=== PATIENT | female | born 1970 | race Caucasian/White ===

== ENCOUNTER → 2016-03-13 | Outpatient (CLI) | payer OTHER ==
--- NOTE | 2016-03-13 16:13 | DX ---
Bilateral Ankles, Three weightbearing views of each History: Instability Findings: Right: Alignment is anatomic. The talar domes are symmetric and normal. Mineralization is n ormal. There is no arthritis. Mineralization is normal. No evidence for ankle joint effusion. Left: Alignment is anatomic. The talar dome is normal. Mineralization is normal. There is no arthriti s. No ankle joint effusion. Impression: Normal bilateral ankles..
--- NOTE | 2016-03-13 17:23 | DX ---
Bilateral Feet, Three Views Each History: Bilateral feet pain. Findings: Normal mineralization and alignment. Bipartite appearance to the medial left sesamoid. N o significant joint narrowing. Minimal subarticular sclerosis and spurring at the 1st metatarsophala ngeal joint bilaterally. No evidence for a periarticular erosion. No evidence for an enthesophyte a t the plantar insertion of either calcaneus or erosion. Accessory ossification is seen dorsal to the talonavicular articulation on the right. Impression: Minimal early degenerative change at the 1st metatarsophalangeal joint bilaterally. Oth erwise unremarkable.
== END ==
LOC: BMCIMAGING 15:36
PROVIDERS: ATTEND Podiatrist Foot & Ankle Surgery
DX: M19.071 Primary osteoarthritis, right ankle and foot (principal); M19.072 Primary osteoarthritis, left ankle and foot

== ENCOUNTER 2016-03-17 15:32 | Observation (INO) | payer OTHER ==
[2016-03-17] MEDS ORDERED: ADENOSINE 6 MG/2 ML VIAL ONE (15:36)
--- NOTE | 2016-03-17 15:36 | EDPHY ---
H & P HPI/ROS: HPI CHIEF COMPLAINT: Chest Pain HISTORY OF PRESENT ILLNESS: This patient very pleasant 45-year-old female she does have significant past medical history for angina and takes nitroglycerin for this, diabetes, hyperlipidemia and thyroid disease, she presents emergency room by private vehicle for chest pain. Patient tells me that it felt like a gas pain in the center of her chest left-sided and at times radiates down her left shoulder and upper left jaw. At times she describes aching sensation in her chest as well as numbness in her left shoulder. Patient tells me that she did take 2 nitroglycerin prior to arrival however it really did not help with her pain. She tells me does feel like angina and also tells me that he gets worse when she exerts herself. She states this started at 9:30 a.m. this morning it has been intermittent. She went to work and had to leave work because of the pain got more severe. she denies a history of cardiac disease, denies history of stroke, denies a history of stent placement. This patient is followed by Dr. Ellis Ramirez with Cardiology. Past Medical History: Angina, diabetes, hyperlipidemia, thyroid disease Past Surgical History: the left oophorectomy, right oophorectomy, lysis of adhesions, heart catheterization approximately 1 year ago Social History: Denies use of drugs, alcohol, tobacco products, lives locally. Family History: Noncontributory ROS REVIEW OF SYSTEMS: A comprehensive 10 point review of systems is otherwise negative aside from elements mentioned in the history of present illness. Exam Constitutional triage nursing summary reviewed, vital signs reviewed, awake/ alert. Eyes normal conjunctivae and sclera, EOMI, PERRLA. HENT normal inspection, atraumatic, moist mucus membranes, no epistaxis, neck supple/ no meningismus, no raccoon eyes. Respiratory clear to auscultation bilaterally, normal breath sounds, no respiratory distress, no wheezing. Cardiovascular rate normal, regular rhythm, no murmur, no edema, distal pulses normal. Gastrointestinal soft, non-tender, no rebound, no guarding, normal bowel sounds, no distension, no pulsatile mass. Genitourinary no CVA tenderness. Musculoskeletal no midline vertebral tenderness, full range of motion, no calf swelling, no tenderness of extremities, no meningismus, good pulses, neurovascularly intact. Skin pink, warm, & dry, no rash, skin atraumatic. Neurologic awake, alert and oriented x 3, AAOx3, moves all 4 extremities equally, motor intact, sensory intact, CN II-XII intact, normal cerebellar, normal vision, normal speech. Psychiatric normal mood/affect. Heme/Lymph/Immune no lymphadenopathy. Differential diagnosis includes but is not limited to: ACS, atypical chest pain , pneumothorax, pneumonia, pulmonary embolism, aortic dissection, congestive heart failure, tumor, musculoskeletal pain, esophageal pain, GERD, peptic ulcer disease, pancreatitis Medical Decision Making: This patient will have an IV established obtain blood work, EKG, chest x-ray, patient will have nitroglycerin, full-dose aspirin, 1 mg IV Dilaudid IV fluids see if this improves her chest discomfort.Patient will need a chest x-ray. Re-evaluation: EKG interpretation by me on record in [employer] system. Impression time of EKG 153, this is sinus tachycardia 106. When compared to old EKG on the 2015 this appears to be a very similar EKG morphology. I do not appreciate acute ischemic change on this EKG specifically no ST elevation, ST depression. There is nonspecific T-wave abnormality in V1, V2 similar to previous EKG. 1641; re-evaluation is patient tells me her chest pain is almost gone currently 02/25. This was after nitroglycerin and Dilaudid. Due to the patient' s chest pain symptoms she does have a normal EKG, negative troponin but does have cardiac risk factors I will admit her to the [facility] for observation. Cardiac evaluation rule out. ED x-ray chest one view: negative for acute cardiopulmonary disease. Image interpreted by myself. 1645: at this time this patient is resting comfortably chest pain-free. She is agreeable for admission for cardiac evaluation and rule out. It is noted she had a negative D-dimer, negative troponin, nonischemic EKG. Patient be admitted to the E[facility]. Spoke with Dr. Sewell who agrees to admit this patient. Source: Patient - Medical/Surgical History Hx Asthma: Yes Hx Chronic Respiratory Disease: No Hx Diabetes: Yes Hx Cardiac Disease: No Hx Renal Disease: No Hx Cirrhosis: No Hx Alcoholism: No Hx HIV/AIDS: No Hx Splenectomy or Spleen Trauma: No Other PMH: hysterectomy,C- section, laproscopy for ovarian cysts and adhesions; hypothyroid, fibromyalgia, pre-diabetes, asthma, IBS, adhesions, ANGINA - Social History Smoking Status: Former smoker Constitutional: Initial Vital Signs Temperature (C) 36.4 C 03/17/16 15:37 Heart Rate 120 H 03/17/16 15:37 Respiratory Rate 28 H 03/17/16 15:37 Blood Pressure 109/84 H 03/17/16 15:37 O2 Sat (%) 95 03/17/16 15:37 O2 Delivery Mode Nasal Cannula O2 (L/minute) 2 Allergies/Adverse Reactions: capsaicin Allergy (Verified 03/17/16 15:33) ciprofloxacin [From Cipro] Allergy (Verified 03/17/16 15:33) ciprofloxacin HCl [From Cipro] Allergy (Verified 03/17/16 15:33) morphine Allergy (Verified 03/17/16 15:33) Sulfa (Sulfonamide Antibiotics) Allergy (Verified 03/17/16 15:33) tramadol Allergy (Verified 03/17/16 15:33) venom-wasp [Wasp Venom] Allergy (Verified 03/17/16 15:33) Home Medications: Medication Instructions Recorded Amitriptyline HCl 07/23/15 Atorvastatin Calcium 07/23/15 Gabapentin 07/23/15 Levothyroxine 07/23/15 Nitroglycerin 07/23/15 Protonix 07/23/15 Topiramate 07/23/15 Xyzal 07/23/15 [place] 03/17/16 Medical Decision Making - Data Points Laboratory Results: Laboratory Results 03/17/16 15:41 03/17/16 15:41 03/17/16 15:41 WBC 5.36 10^3/uL (3.80-9.50) RBC 4.67 10^6/uL (4.18-5.33) Hgb 14.8 g/dL (12.6-16.3) Hct 43.0 % (38.0-47.0) MCV 92.1 fL (81.5-99.8) MCH 31.7 pg (27.9-34.1) MCHC 34.4 g/dL (32.4-36.7) RDW 12.9 % (11.5-15.2) Plt Count 261 10^3/uL (150-400) MPV 9.8 fL (8.7-11.7) Neut % (Auto) 46.7 % (39.3-74.2) Lymph % (Auto) 43.1 % (15.0-45.0) [place] % (Auto) 7.1 % (4.5-13.0) Eos % (Auto) 2.2 % (0.6-7.6) Baso % (Auto) 0.9 % (0.3-1.7) Nucleat RBC Rel Count 0.0 % (0.0-0.2) Absolute Neuts (auto) 2.50 10^3/uL (1.70-6.50) Absolute Lymphs (auto) 2.31 10^3/uL (1.00-3.00) Absolute Monos (auto) 0.38 10^3/uL (0.30-0.80) Absolute Eos (auto) 0.12 10^3/uL (0.03-0.40) Absolute Basos (auto) 0.05 10^3/uL (0.02-0.10) Absolute Nucleated RBC 0.00 10^3/uL (0-0.01) Immature Gran % 0.0 % (0.0-1.1) Immature Gran # 0.00 10^3/uL (0.00-0.10) PT 12.8 SEC (12.0-15.0) INR 0.97 (0.83-1.16) APTT 28.1 SEC (23.0-38.0) D-Dimer 0.35 ug/mLFEU (0.00-0.50) Sodium 140 mEq/L (134-144) Potassium 4.1 mEq/L (3.5-5.2) Chloride 106 mEq/L (97-110) Carbon Dioxide 24 mEq/l (22-31) Anion Gap 10 mEq/L (8-16) BUN 15 mg/dL (7-23) Creatinine 0.9 mg/dL (0.6-1.0) Estimated GFR > 60 Glucose 115 H mg/dL (70-100) Calcium 9.1 mg/dL (8.5-10.4) Magnesium 1.6 mg/dL (1.6-2.3) Total Bilirubin 0.5 mg/dL (0.1-1.4) Conjugated Bilirubin 0.2 mg/dL (0.0-0.5) Unconjugated Bilirubin 0.3 mg/dL (0.0-1.1) AST 27 IU/L (14-46) ALT 55 H IU/L (9-52) Alkaline Phosphatase 121 IU/L (38-126) Creatine Kinase 60 IU/L (0-156) CK-MB (CK-2) Fraction 0.65 ng/mL (0-3.19) Troponin I < 0.012 ng/mL (0-0.034) NT-Pro-B Natriuret Pep < 11 pg/mL (0-125) Total Protein 7.3 g/dL (6.3-8.2) Albumin 3.9 g/dL (3.5-5.0) Lipase 92.0 IU/L (23-300) Medications Given: Discontinued Medications Aspirin Buffered (Aspirin Ec) 325 mg PO EDNOW ONE Stop: 03/17/16 15:44 Last Admin: 03/17/16 15:53 Dose: 325 mg Hydromorphone HCl (Dilaudid) 1 mg IVP EDNOW ONE Stop: 03/17/16 15:46 Last Admin: 03/17/16 15:53 Dose: 1 mg Sodium Chloride (Ns) 1,000 mls @ 0 mls/hr IV ONCE ONE PRN Reason: As Directed Stop: 03/17/16 15:39 Last Admin: 03/17/16 15:53 Dose: 1,000 mls Nitroglycerin (Nitrostat) 0.4 mg SL EDNOW ONE Stop: 03/17/16 15:46 Last Admin: 03/17/16 15:52 Dose: 0.4 mg Departure - Departure Disposition: [facility] Inpatient Acute Clinical Impression: Chest pain Qualifiers: Chest pain type: unspecified Qualifier Code: (R07.9) Chest pain, unspecified Condition: Fair Referrals: Ramona Magallanes PAC [Primary Care Provider] - As per Instructions
[2016-03-17] MEDS ORDERED: NS 1,000 ML IV ONE ×2 (15:38→16:41)
--- NOTE | 2016-03-17 15:41 | CPEKG ---
Heart Rate: 106 RR Interval: 566 P-R Interval: 172 QRSD Interval: 78 QT Interval: 348 QTC Interval: 463 P [place]: 39 QRS [place]: 7 T Wave [place]: -8 EKG Severity - BORDERLINE ECG - EKG Impression: SINUS TACHYCARDIA EKG Impression: BORDERLINE R WAVE PROGRESSION, ANTERIOR LEADS EKG Impression: BORDERLINE T ABNORMALITIES, INFERIOR LEADS Electronically Signed By: Alber Benites 17-Mar-2016 23:30:08
[2016-03-17] MEDS ORDERED: ASPIRIN EC 325 MG TAB PO ONE (15:43)
[2016-03-17] MEDS ORDERED: HYDROmorphONE/DILAUDID 1 MG/ML SYR IVP ONE ×2 (15:45→16:40)
[2016-03-17] MEDS ORDERED: NITROGLYCERIN 0.4 MG BTL SL ONE (15:45)
[2016-03-17] MEDS ORDERED: ASPIRIN 81 MG CHEWABLE TAB ONE (15:48)
[2016-03-17 15:59] LABS: ADD DIFF? NO; ADD MORPH? NO; ADD SCAN? NO; ATYPICAL LYMPHOCYTE FLAG 10 (0-99); FRAGMENT RBC FLAG 0 (0-99); HEMOGLOBIN 14.8 g/dL (12.6-16.3); LEFT SHIFT FLG 0 (0-99); LIPEMIA HEMOLYSIS FLAG 90 (0-99); MEAN CELL HEMOGLOBIN 31.7 pg (27.9-34.1); MEAN CELL HEMOGLOBIN CONCENTR. 34.4 g/dL (32.4-36.7); MEAN CELL VOLUME 92.1 fL (81.5-99.8); MEAN PLATELET VOLUME 9.8 fL (8.7-11.7); PLATELET CLUMPS FLAG 10 (0-99); PLATELET COUNT 261 10^3/uL (150-400); RED BLOOD CELL COUNT 4.67 10^6/uL (4.18-5.33); RED CELL DISTRIBUTION WIDTH 12.9 % (11.5-15.2)
[2016-03-17 16:03] LABS: INR 0.97 (0.83-1.16); PROTIME(PATIENT) 12.8 SEC (12.0-15.0)
[2016-03-17 16:04] LABS: ALANINE AMINOTRANSFERASE 55 IU/L (9-52); ALBUMIN 3.9 g/dL (3.5-5.0); ALKALINE PHOSPHATASE 121 IU/L (38-126); ANION GAP 10 mEq/L (8-16); APTT 28.1 SEC (23.0-38.0); ASPARTATE AMINOTRANSFERASE 27 IU/L (14-46); BILIRUBIN,TOTAL 0.5 mg/dL (0.1-1.4); BILIRUBIN-CONJUGATED 0.2 mg/dL (0.0-0.5); BILIRUBIN-UNCONJUGATED 0.3 mg/dL (0.0-1.1); CALCIUM 9.1 mg/dL (8.5-10.4); CARBON DIOXIDE 24 mEq/l (22-31); CHLORIDE 106 mEq/L (97-110); CREATININE 0.9 mg/dL (0.6-1.0); GLOMERULAR FILTRATION RATE > 60; GLUCOSE 115 mg/dL (70-100); MAGNESIUM 1.6 mg/dL (1.6-2.3); POTASSIUM 4.1 mEq/L (3.5-5.2); SODIUM 140 mEq/L (134-144); TOTAL PROTEIN 7.3 g/dL (6.3-8.2)
--- NOTE | 2016-03-17 16:11 | DX ---
Portable Chest, Single View 15:51 p.m. Hours Indication: Chest pain Comparison: 2 view chest dated December 05, 2014 Findings: Lungs are hypoventilated with diffuse peribronchial thickening and minimal bronchovascular crowding. No pneumothorax, airspace consolidation, edema or effusion. Heart size within normal limits for degree of inspiration. Mild gaseous distention of the stomach. Impression: Hypoventilation. Otherwise nothing acute.
[2016-03-17 16:16] LABS: CREATINE KINASE-MB FRACTION 0.65 ng/mL (0-3.19); TROPONIN I < 0.012 ng/mL (0-0.034)
[2016-03-17] MEDS ORDERED: ACETAMINOPHEN 325 MG TAB PO PRN (17:09)
[2016-03-17] MEDS ORDERED: HYDROmorphONE/DILAUDID 1 MG/ML SYR IVP PRN (17:38)
--- NOTE | 2016-03-17 18:14 | GHP ---
[f rep st] HISTORY AND PHYSICAL DATE OF ADMISSION: 03/17/2016 DATE OF EVALUATION: 03/17/2016 CHIEF COMPLAINT: Chest pain. HISTORY OF PRESENT ILLNESS: This is a 45-year-old female with a history of possible Prinzmetal angin wicho, who presents with chest pain. This started about 9 or 10 this morning. Described as left-sided, squeezing, radiating to her left arm, left axilla, and left neck. She took 2 nitroglycerin, which di d not relieve her pain. It is not clear if it was exertional. History is notable for having had a cardiac catheterization by Dr. Ramirez in December of 2014. At th at point, he found no flow-limiting coronary artery disease. He suggested the possible diagnosis of vasospastic angina and started her on nitroglycerin as needed. She tells me that every few months elena alvarez has an episode like this. She presented to the ER today because it was worse, lasted longer, assoc iated with shortness of breath and dizziness, though it is like her other episodes. These are typica lly relieved with nitroglycerin, however. PAST MEDICAL/SURGICAL HISTORY: 1. Diabetes mellitus. 2. Hyperlipidemia. 3. Hypothyroid. 4. Migraines. 5. Fibromyalgia. MEDICATIONS: Please see medication reconciliation. ALLERGIES: Capsaicin, ciprofloxacin, morphine, sulfa, tramadol, and venom, wasp. FAMILY HISTORY: Multiple members with coronary artery disease are in her family, including her first -degree relative, her mother. SOCIAL HISTORY: She occasionally drinks alcohol. She does not smoke. REVIEW OF SYSTEMS: Ten-point review of systems is conducted and is negative, except per HPI. PHYSICAL EXAM: VITAL SIGNS: Blood pressure 127/82, heart rate 92, respiration rate 20, saturating 9 7% on room air, temperature 36.4. GENERAL: The patient is a pleasant female who appears mildly dist ressed and somewhat anxious. HEENT: Normocephalic, atraumatic. CARDIOVASCULAR: Regular rate and r hythm. No murmurs, rubs, or gallops. No elevated JVD. No lower extremity edema. PULMONARY: Lungs clear to auscultation bilaterally. She is in no respiratory distress. ABDOMEN: Soft, nontender, n ondistended. SKIN: No rash. : No [place]. NEUROLOGIC: Exam shows her to be alert and oriented x3 . She is moving all extremities. PSYCHIATRIC: Exam shows normal mood and affect. LABS: CBC is normal. D-dimer is negative. Basic metabolic panel is normal. LFTs show a mildly krishna vated ALT, which has been the case in the past. DATA: 1. I discussed this with Dr. Benites. Will plan to admit to the E[facility]. 2. I personally viewed and interpreted her chest x-ray. This shows nothing acute. 3. I personally viewed and interpreted her EKG. This shows sinus rhythm, T-wave inversion in lead I II, slow R-wave progression. IMPRESSION/PLAN: A 45-year-old female presents with chest pain. 1. Chest pain: Differential includes acute coronary syndrome, which I think is less likely, possibl e vasospastic angina, possibly due to fibromyalgia or other pain syndrome. She had a normal catheter ization in December of 2014, which is reassuring. Will plan to monitor on telemetry overnight, trend her troponins. I have started her on diltiazem in case this is a vasospastic form of angina. Also, gave her other pain medicines for pain control. Cardiology will be consulted in the morning given h er history of a catheterization and history with Dr. Ramirez. Will hold further diagnostics until fur ther recommendations. 2. History of diabetes mellitus type 2: She takes oral medicines. Will continue Januvia when medic ations are reconciled. 3. Hyperlipidemia: Continue atorvastatin. 4. Hypothyroid: Continue Synthroid. 5. Migraines: Continue Topamax, amitriptyline, gabapentin. 6. Fibromyalgia: Continue these medicines, does not seem that she is on narcotics currently. /[id number]/MODL
[2016-03-17] MEDS ORDERED: ALBUTEROL 60 PUFFS/8 GM MDI IH PRN (18:45)
[2016-03-17] MEDS ORDERED: ONDANSETRON 4 MG/2 ML VIAL IVP PRN (18:46)
[2016-03-17] MEDS: DILTIAZEM 30 MG TAB PO SCH (18:47)
[2016-03-17] MEDS: oxyCODONE IR 5 MG TAB PO PRN ×2 (18:48→22:48)
[2016-03-17 19:55] VITALS: O2SAT 93
[2016-03-17] MEDS: ONDANSETRON DISINTEGRATING 4 MG TAB PO PRN (19:58)
[2016-03-17] MEDS ORDERED: TOPIRAMATE 25 MG TAB PO SCH (21:00)
[2016-03-17] MEDS ORDERED: FAMOTIDINE 20 MG TAB PO SCH (21:00)
[2016-03-17] MEDS ORDERED: ATORVASTATIN CALCIUM 40 MG TAB PO SCH (21:00)
[2016-03-17] MEDS ORDERED: AMITRIPTYLINE HCL 25 MG TAB PO SCH (22:00)
[2016-03-17] MEDS: GABAPENTIN 400 MG CAP PO SCH (22:47)
[2016-03-17] MEDS ORDERED: NITROGLYCERIN 0.4 MG BTL SL PRN (23:10)
[2016-03-17] MEDS: NITROGLYCERIN 0.4 MG BTL SL SCH ×3 (23:56→23:59)
[2016-03-18] MEDS: NITROGLYCERIN 0.4 MG BTL SL SCH ×15 (00:01→01:37)
[2016-03-18] MEDS: DILTIAZEM 30 MG TAB PO SCH ×3 (01:15→13:10)
[2016-03-18] MEDS: ONDANSETRON DISINTEGRATING 4 MG TAB PO PRN ×2 (05:31→13:59)
[2016-03-18] MEDS: oxyCODONE IR 5 MG TAB PO PRN ×3 (05:31→14:00)
[2016-03-18] MEDS ORDERED: LEVOTHYROXINE 137 MCG TAB PO SCH (06:00)
[2016-03-18] MEDS: GABAPENTIN 400 MG CAP PO SCH ×2 (08:19→13:09)
[2016-03-18 08:23] VITALS: RESP 20; TEMP 97.8
[2016-03-18] MEDS ORDERED: PANTOPRAZOLE SODIUM 40 MG TAB PO SCH (10:00)
[2016-03-18 13:10] VITALS: BP 114/79; PULSE 96
[2016-03-18] MEDS ORDERED: GABAPENTIN 100 MG CAP ONE (13:30)
[2016-03-18] MEDS ORDERED: GABAPENTIN 300 MG CAP ONE (13:30)
--- NOTE | 2016-03-18 13:34 | PDCARPN ---
Cardiology Progress Note Assessment/Plan: The patient is a 45-year-old female known to my partner, Dr. Ramirez. She has a history of chest pain episodes that have been ascribed to potential coronary vasospasm. A cardiac catheterization performed 2 years ago demonstrated angiographically normal coronary arteries. She was placed in observation overnight because of a more protracted and severe episode of chest discomfort yesterday. She was just sitting at home when he began to experience substernal and left chest burning discomfort with radiation to the inner aspect of the left arm. This was associated with some shortness of breath and lightheadedness. She tried her sublingual nitroglycerin which is usually effective in relieving such episodes. This time it did not work. In talking with her, it may be that her nitroglycerin tablets were stale. There were no acute ischemic changes on ECG. Her serial troponin levels all came back normal. At this point she is stable for discharge. I provided her with a new prescription for nitroglycerin tablets. The hospitalist service also prescribed daily calcium channel bob for preventative therapy. I have left a message with the office staff at [facility] to contact the patient to arrange a followup appointment in the future with Dr. Ramirez. 03/18/16 13:28 Subjective: No symptoms today. Reviewed/Discussed With: hospitalist Objective: Vital Signs (8 Hrs) Temp Pulse Resp BP Pulse Ox 03/18/16 13:10 96 114/79 03/18/16 08:00 36.6 C 86 20 108/75 93 03/18/16 05:40 80 111/78 03/18/16 05:39 80 111/78 Intake/Output (24 Hrs) 03/17/16 03/18/16 03/19/16 05:59 05:59 05:59 Intake Total 1999 Balance 1999 Intake: IV Infused (ml) 1999 Other: Weight 86.9 kg Result Diagrams: 03/17/16 15:41 03/17/16 15:41 Cardiac Labs: Cardiac Lab Results (72 Hrs) 03/18/16 03/17/16 05:10 22:50 Troponin I < 0.012 < 0.012 - Physical Exam Constitutional: no apparent distress Eyes: anicteric sclera Ears, Nose, Mouth, Throat: moist mucous membranes Cardiovascular: regular rate and rhythm, no murmurs, no rubs, no gallops Respiratory: clear to auscultate bilat Gastrointestinal: normoactive bowel sounds, no tenderness, no masses Skin: no rashes, no edema Neurologic: AAOx3 Psychiatric: not anxious ICD10 Worksheet Patient Problems: Problems Problem Status Diagnosed Abdominal pain Acute Chest pain Acute
[2016-03-18] MEDS ORDERED: GABAPENTIN 400 MG CAP PO ONE (14:00)
--- NOTE | 2016-03-18 15:43 | GDS ---
[f rep st] DISCHARGE SUMMARY DISCHARGE DIAGNOSES: 1. Chest pain, due to possible coronary artery vasospasms versus musculoskeletal chest wall pain in the setting of fibromyalgia. 2. History of type 2 diabetes mellitus. 3. Hyperlipidemia. 4. Hypothyroidism. 5. Migraines. 6. Fibromyalgia. HOSPITAL COURSE AND STAY BY PROBLEM: Chest pain: The patient was placed in observation, where seria l troponins were done which were unremarkable. Throughout her hospital stay, she has continued to farrell ve left-sided sharp, squeezing chest pain despite her negative workup. On day of discharge, patient does have some tenderness to palpation over her ribs 5 and 6 at the midaxillary line. Prior to discharge, the patient was seen by Dr. Raul Reyna from [facility], who agr eed with discharging the patient on a trial of daily diltiazem, as well as a new prescription for nit roglycerin. If she continues to have chest discomfort on these medications, I think it would be reas onable to further evaluate for different medications for fibromyalgia, such as Cymbalta, to see if th is would help her symptomatology. PHYSICAL EXAM ON DAY OF DISCHARGE: VITAL SIGNS: Blood pressure 114/79, pulse of 86, respiratory rat e 20, O2 sat 93% on room air, temperature afebrile. GENERAL: No acute distress. HEART: S1, S2. L UNGS: Clear. ABDOMEN: Soft. EXTREMITIES: No edema. CHEST: There is tenderness to palpation at the midaxillary line of ribs 6 and 7. DIAGNOSTICS DONE THIS HOSPITAL STAY: D-dimer was done and that was within normal limits. DISCHARGE MEDICATIONS: Please refer to discharge medication reconciliation in [facility] for details. DISCHARGE INSTRUCTIONS: The patient will be discharged from the hospital, where she should follow up with both her primary care provider, as well as Dr. Ramirez at [facility] for routine hospital fol lowup. /[id number]/MODL
== END 2016-03-18 15:08 | disposition home or self-care (01) ==
LOC: F1N 17:07
PROVIDERS: ADMIT Student in an Organized Health Care Education/Training Program; ATTEND Student in an Organized Health Care Education/Training Program
DX: R07.9 Chest pain, unspecified (principal); M79.7 Fibromyalgia; E11.9 Type 2 diabetes mellitus without complications; I20.9 Angina pectoris, unspecified; E78.5 Hyperlipidemia, unspecified; E03.9 Hypothyroidism, unspecified; G43.909 Migraine, unspecified, not intractable, without status migrainosus; Z79.84 Long term (current) use of oral hypoglycemic drugs
CPT/HCPCS: 71010; 93005; 96361; 96374; 96376; 99285; G0378; J0153; J1170

== ENCOUNTER → 2016-06-18 | Outpatient (CLI) | payer OTHER | LOC: FIMAGING 14:07 | PROVIDERS: ATTEND Physician Assistant | DX: M79.661 Pain in right lower leg (principal) ==

== ENCOUNTER 2016-06-20 16:13 | Emergency (ER) | payer OTHER ==
[2016-06-20 16:20] VITALS: RESP 15
--- NOTE | 2016-06-20 16:50 | EDPHY ---
H & P Time Seen by Provider: 06/20/16 16:31 HPI/ROS: Chief complaint. Fall HPI. 46-year-old female was walking this afternoon on a sidewalk stepped on a rock rolled her ankle. She fell injuring her left ankle, 6 sustained abrasion to the right knee, and fell onto her right arm. She can planes of pain from right shoulder to right wrist. She has previously sprained her left ankle about 1 year ago. Did not strike her head or lose consciousness. No neck pain or back pain. No injury to chest or abdomen. ROS Constitutional. no fever/chills, no weakness Eyes. no problems with vision ENT. no sore throat, no nasal drainage Cardiovascular. no chest pain Respiratory. no shortness of breath, no cough Abdominal. no abdominal pain, no nausea/vomiting, no diarrhea . no problems urinating MS. Right arm pain, left ankle pain Skin. Abrasion right knee Lymph. no swollen glands Neuro. Hard to walk now because of discomfort Past Medical/Surgical History: Past medical history hysterectomy, , ovarian cysts, hypothyroid, fibromyalgia, diabetes, asthma, IBS, adhesions, and denied, dyslipidemia, migraines, Gerd Social History: , nonsmoker, no alcohol Smoking Status: Former smoker Physical Exam: General Appearance: Alert well-developed female moderate distress vital signs are stable Eyes: Pupils equal and round no pallor or injection. ENT, Mouth: Mucous membranes are moist. Respiratory: There are no retractions, lungs are clear to auscultation. Cardiovascular: Regular rate and rhythm. Gastrointestinal: Abdomen is soft and nontender, no masses, bowel sounds normal. Neurological: Awake and alert, sensory and motor exams grossly normal. Skin: Warm and dry, no rashes. Musculoskeletal: Neck is supple nontender. Extremities diffuse pain to the right upper extremity. Abrasion behind the right elbow. No obvious deformity. Tenderness around the elbow as well as the right wrist. Left ankle pain on lateral aspect without obvious swelling or deformity. Abrasion just below the right knee Psychiatric: Patient is oriented X 3, there is no agitation. Constitutional: Initial Vital Signs Temperature (C) 36.7 C 06/20/16 16:18 Heart Rate 98 06/20/16 16:18 Respiratory Rate 15 06/20/16 16:18 Blood Pressure 154/102 H 06/20/16 16:18 O2 Sat (%) 96 06/20/16 16:18 O2 Delivery Mode Room Air Allergies/Adverse Reactions: capsaicin Allergy (Verified 06/20/16 16:20) ciprofloxacin [From Cipro] Allergy (Verified 06/20/16 16:20) ciprofloxacin HCl [From Cipro] Allergy (Verified 06/20/16 16:20) morphine Allergy (Verified 06/20/16 16:20) Sulfa (Sulfonamide Antibiotics) Allergy (Verified 06/20/16 16:20) tramadol Allergy (Verified 06/20/16 16:20) venom-wasp [Wasp Venom] Allergy (Verified 06/20/16 16:20) Home Medications: Medication Instructions Recorded Amitriptyline HCl 75 mg PO HS 07/23/15 Atorvastatin Calcium [Lipitor 40 40 mg PO HS 07/23/15 mg (*)] Gabapentin [Neurontin 400 MG (*)] 400 mg PO TID@08,13,21 07/23/15 Levothyroxine [Synthroid 137 mcg 137 mcg PO DAILY06 07/23/15 (*)] Nitroglycerin [Nitrostat 0.4 mg 0.4 mg SL Q5M 07/23/15 (*)] Pantoprazole Sodium [Protonix 40mg 40 mg PO DAILY@10 07/23/15 (*)] Topiramate [Topamax 25MG (*)] 25 mg PO HS 07/23/15 Albuterol Hfa Anes Only [Proair 1 - 2 puffs IH PRN PRN 03/17/16 Hfa Icu (*)] Ranitidine HCl [Zantac] 300 mg PO HS 03/17/16 sitaGLIPtin PHOSPHATE [Januvia 100 100 mg PO DAILY 03/17/16 MG (*)] CYCLOBENZAPRINE HCL [Flexeril] 5 mg PO TIDPRN PRN #10 tab 03/18/16 Diltiazem [Cardizem Ir Q6hr] 30 mg PO Q6HRS #120 tab 03/18/16 oxyCODONE IR [Oxycodone Ir (*)] 5 - 10 mg PO Q4 PRN #10 tab 03/18/16 Hydrocodone/APAP 5/325 [[place] 1 each PO Q4-6PRN PRN #8 tab 06/20/16 5/325 (*)] Medical Decision Making - Diagnostics Imaging Results: Imaging Impressions Ankle X-Ray 06/20/16 16:55 Impression: There is no acute osseous abnormality. RIGHT ELBOW (3 Views, at 5:22 PM): Bone mineralization is preserved. There is no fracture or dislocation. There is no elbow joint effusion. There may be some mild proximal dorsal forearm soft tissue swelling. Impression: There is no acute osseous abnormality. RIGHT FOREARM (AP and Lateral Views, at 5:20 PM): There is no fracture, dislocation, periostitis, or radiopaque foreign body. Impression: There is no acute osseous abnormality identified. LEFT ANKLE (3 Views, at 5:17 PM): This is compared to a previous study dated . There is some mild soft tissue swelling seen laterally. There is no acute fracture or dislocation. The mortise is maintained. The talar dome is well -contoured. There is no ankle joint effusion. The subtalar joint is normal. The base of the fifth metatarsal is unremarkable. Impression: There is no acute osseous abnormality. Elbow X-Ray 06/20/16 16:55 Impression: There is no acute osseous abnormality. RIGHT ELBOW (3 Views, at 5:22 PM): Bone mineralization is preserved. There is no fracture or dislocation. There is no elbow joint effusion. There may be some mild proximal dorsal forearm soft tissue swelling. Impression: There is no acute osseous abnormality. RIGHT FOREARM (AP and Lateral Views, at 5:20 PM): There is no fracture, dislocation, periostitis, or radiopaque foreign body. Impression: There is no acute osseous abnormality identified. LEFT ANKLE (3 Views, at 5:17 PM): This is compared to a previous study dated . There is some mild soft tissue swelling seen laterally. There is no acute fracture or dislocation. The mortise is maintained. The talar dome is well -contoured. There is no ankle joint effusion. The subtalar joint is normal. The base of the fifth metatarsal is unremarkable. Impression: There is no acute osseous abnormality. Forearm X-Ray 06/20/16 16:55 Impression: There is no acute osseous abnormality. RIGHT ELBOW (3 Views, at 5:22 PM): Bone mineralization is preserved. There is no fracture or dislocation. There is no elbow joint effusion. There may be some mild proximal dorsal forearm soft tissue swelling. Impression: There is no acute osseous abnormality. RIGHT FOREARM (AP and Lateral Views, at 5:20 PM): There is no fracture, dislocation, periostitis, or radiopaque foreign body. Impression: There is no acute osseous abnormality identified. LEFT ANKLE (3 Views, at 5:17 PM): This is compared to a previous study dated . There is some mild soft tissue swelling seen laterally. There is no acute fracture or dislocation. The mortise is maintained. The talar dome is well -contoured. There is no ankle joint effusion. The subtalar joint is normal. The base of the fifth metatarsal is unremarkable. Impression: There is no acute osseous abnormality. Humerus X-Ray 06/20/16 16:55 Impression: There is no acute osseous abnormality. RIGHT ELBOW (3 Views, at 5:22 PM): Bone mineralization is preserved. There is no fracture or dislocation. There is no elbow joint effusion. There may be some mild proximal dorsal forearm soft tissue swelling. Impression: There is no acute osseous abnormality. RIGHT FOREARM (AP and Lateral Views, at 5:20 PM): There is no fracture, dislocation, periostitis, or radiopaque foreign body. Impression: There is no acute osseous abnormality identified. LEFT ANKLE (3 Views, at 5:17 PM): This is compared to a previous study dated . There is some mild soft tissue swelling seen laterally. There is no acute fracture or dislocation. The mortise is maintained. The talar dome is well -contoured. There is no ankle joint effusion. The subtalar joint is normal. The base of the fifth metatarsal is unremarkable. Impression: There is no acute osseous abnormality. X-ray right humerus interpreted by me is normal. X-ray right elbow interpreted by me as normal. X-ray right forearm interpreted by me as normal. X-ray left ankle interpreted by me as normal Procedures: Patient has allergies to morphine, tramadol and untoward reactions to oral medication. IV normal saline. Dilaudid and Zofran and Toradol IV ED Course/Re-evaluation: Re-evaluation 5:45 p.m. patient is stable. She and I discussed imaging study results, treatment plan, criteria for return, importance of follow-up and further evaluation. She expresses understanding and agreement. Sling is placed to the right arm. Patient has an orthotic boot at home that she will wear and declines 1 of ours. Differential Diagnosis: I considered fracture, dislocation, sprain - Data Points Medications Given: Discontinued Medications Hydromorphone HCl (Dilaudid) 0.5 mg IVP EDNOW ONE Stop: 06/20/16 16:55 Last Admin: 06/20/16 17:11 Dose: 0.5 mg Ketorolac Tromethamine (Toradol) 30 mg IVP EDNOW ONE Stop: 06/20/16 16:55 Last Admin: 06/20/16 17:12 Dose: 30 mg Ondansetron HCl (Zofran) 4 mg IVP EDNOW ONE Stop: 06/20/16 16:55 Last Admin: 06/20/16 17:12 Dose: 4 mg Departure - Departure Disposition: Home, Routine, Self-Care Clinical Impression: Contusion of right arm Qualifiers: Encounter type: initial encounter Qualified Code(s): S40.021A - Contusion of right upper arm, initial encounter Left ankle sprain Qualifiers: Encounter type: initial encounter Involved ligament of ankle: unspecified ligament Qualified Code(s): S93.402A - Sprain of unspecified ligament of left ankle, initial encounter Condition: Good Instructions: Ankle Sprain (ED) Additional Instructions: Ice to arm ankle next 24-48 hours. Ibuprofen 600 mg every 6 hours for discomfort. Sling and boot until comfortable without. Plan to wear the boot for 7-10 days. Follow up with Orthopedics for continuing arm or ankle pain Referrals: Thomas Ricketts MD [Medical Doctor] - 5-7 days, if not improved Prescriptions: Hydrocodone/APAP 5/325 [Petaluma 5/325 (*)] 1 each PO Q4-6PRN PRN #8 tab PRN Reason: Pain, Moderate
[2016-06-20] MEDS ORDERED: ONDANSETRON 4 MG/2 ML VIAL IVP ONE (16:54)
[2016-06-20] MEDS ORDERED: NS 1,000 ML IV ONE (16:54)
[2016-06-20] MEDS ORDERED: KETOROLAC 30 MG/1 ML SDV IVP ONE (16:54)
[2016-06-20] MEDS ORDERED: HYDROmorphONE/DILAUDID 1 MG/ML SYR IVP ONE (16:54)
[2016-06-20 18:16] VITALS: BP 136/98; PULSE 91; TEMP 98.8; O2SAT 95
== END 2016-06-20 18:16 | disposition home or self-care (01) ==
DX: S93.402A Sprain of unspecified ligament of left ankle, initial encounter (principal); S40.021A Contusion of right upper arm, initial encounter; E11.9 Type 2 diabetes mellitus without complications; J45.909 Unspecified asthma, uncomplicated; Z87.891 Personal history of nicotine dependence; W10.1XXA Fall (on)(from) sidewalk curb, initial encounter; Y92.480 Sidewalk as the place of occurrence of the external cause
CPT/HCPCS: 96374; A4565; J1170; J1885; J2405

== ENCOUNTER → 2016-06-23 | Outpatient (CLI) | payer OTHER | LOC: FIMAGING 09:51 | DX: Z12.31 Encounter for screening mammogram for malignant neoplasm of breast (principal) | CPT/HCPCS: G0202 ==

== ENCOUNTER 2016-07-22 13:03 | Emergency (ER) | payer OTHER ==
--- NOTE | 2016-07-22 13:43 | CPEKG ---
Heart Rate: 80 RR Interval: 750 P-R Interval: 184 QRSD Interval: 82 QT Interval: 416 QTC Interval: 480 P Bassett: 38 QRS Bassett: -5 T Wave Bassett: 10 EKG Severity - BORDERLINE ECG - EKG Impression: SINUS RHYTHM EKG Impression: BORDERLINE R WAVE PROGRESSION, ANTERIOR LEADS EKG Impression: BORDERLINE T ABNORMALITIES, ANTERIOR LEADS Electronically Signed By: Jacque Philip 22-Jul-2016 15:43:43
[2016-07-22] MEDS ORDERED: ONDANSETRON 4 MG/2 ML VIAL ONE (13:53)
[2016-07-22] MEDS ORDERED: NS 1,000 ML IV ONE (14:23)
[2016-07-22] MEDS ORDERED: NITROGLYCERIN 0.4 MG BTL SL PRN (14:28)
[2016-07-22] MEDS ORDERED: ASPIRIN 81 MG CHEWABLE TAB PO ONE (14:28)
[2016-07-22 14:38] LABS: % IMMATURE GRANULYOCYTES 0.2 % (0.0-1.1); ABSOLUTE IMMATURE GRANULOCYTES 0.01 10^3/uL (0.00-0.10); ADD DIFF? NO; ADD MORPH? NO; ADD SCAN? NO; ATYPICAL LYMPHOCYTE FLAG 0 (0-99); FRAGMENT RBC FLAG 0 (0-99); HEMATOCRIT 41.9 % (38.0-47.0); HEMOGLOBIN 13.7 g/dL (12.6-16.3); LEFT SHIFT FLG 0 (0-99); LIPEMIA HEMOLYSIS FLAG 80 (0-99); MEAN CELL HEMOGLOBIN 30.9 pg (27.9-34.1); MEAN CELL HEMOGLOBIN CONCENTR. 32.7 g/dL (32.4-36.7); MEAN CELL VOLUME 94.6 fL (81.5-99.8); MEAN PLATELET VOLUME 10.3 fL (8.7-11.7); PLATELET CLUMPS FLAG 10 (0-99); PLATELET COUNT 240 10^3/uL (150-400); RED BLOOD CELL COUNT 4.43 10^6/uL (4.18-5.33); RED CELL DISTRIBUTION WIDTH 12.5 % (11.5-15.2)
[2016-07-22] MEDS ORDERED: IOPAMIDOL (ISOVUE 370) 100 ML BTL IV ONE (15:09)
[2016-07-22] MEDS ORDERED: NITROGLYCERIN 0.4 MG BTL SL ONE (15:31)
--- NOTE | 2016-07-22 15:37 | EDPHY ---
H & P Stated Complaint: dizzy, lightheaded, CP, left arm numbess starting this morning Time Seen by Provider: 07/22/16 13:55 HPI/ROS: CHIEF COMPLAINT: HISTORY OF PRESENT ILLNESS: 46-year-old female with medical history significant for diabetes, hypothyroidism, migraines, fibromyalgia, possible coronary artery vasospasms arrives via private vehicle complaining of 3 days of left-sided headache which is different than usual headaches as her chronic migraines tend to occur on the right. She describes this is a non thunderclap with associated photophobia. No nausea or vomiting. Definitely feels different than her usual headaches. No neck pain. No neck manipulation such as chiropractic manipulation. No head trauma. No neurologic deficits or complaints. She she is also complaining of left neck, left chest and left arm pain with near syncopal sensation, nausea since this afternoon. The symptoms resolved temporarily after nitroglycerin symptoms have now returned however. Chest pain is not pleuritic. She went to the [facility] referred to the emergency department for evaluation. She denies: Dyspnea, abdominal pain, back or flank pain, trauma. Primary neurologist: [facility] Primary cardiology: formerly [facility] REVIEW OF SYSTEMS: A ten point review of systems was performed and is negative with the exception of the items mentioned in the HPI PAST MEDICAL & SURGICAL HISTORY: Diabetes. Fibromyalgia. Hyperlipidemia. Migraine. Hypothyroid. SOCIAL HISTORY:nonsmoker. No drug use. PHYSICAL EXAM (Prior to examination, patient consented to physical exam, hands were washed and my usual and customary physical exam procedures followed) 1) GENERAL: Well-developed, well-nourished, alert and oriented.appears uncomfortable 2) HEAD: Normocephalic, atraumatic 3) HEENT: Pupils equal, round, reactive to light bilaterally. Sclera anicteric. 4) NECK: Full range of motion, no bruit . 5) LUNGS: Clear auscultation bilaterally, no wheezes, no rhonchi, no retractions. 6) HEART: Regular rate and rhythm, no murmur, no heave, no gallop. chest wall nontender. 7) ABDOMEN: No guarding, no rebound, no focal tenderness, negative McBurney's, 8) MUSCULOSKELETAL: Moving all extremities, no focal areas of tenderness, no obvious trauma. No peripheral edema or discoloration. 9) BACK: No CVA tenderness, no midline vertebral tenderness, no fluctuance, no step-off, no obvious trauma, no visual or palpable abnormality. 10) SKIN: No rash, no petechiae. 11) Psychiatric: Patient is oriented X 3, there is no agitation. 12)NEURO: Awake, alert, and oriented to person, place and time. Answers questions appropriately. There were no obvious focal neurologic abnormalities. No cerebellar dysfunction. Normal steady gait. Upper and lower extremities bilaterally with strength 5 / 5, reflexes 2+. DIFFERENTIAL DIAGNOSIS: In no particular order, including but not limited to myocardial ischemia, pulmonary embolus, chest wall pain, pleural inflammation and pulmonary infectious causes, intracranial hemorrhage, migraine headache, migraine variant - Personal History LMP (Females 10-55): Hysterectomy Current Tetanus/Diphtheria Vaccine: Yes Current Tetanus Diphtheria and Acellular Pertussis (TDAP): Yes Tetanus Vaccine Date: < 10 years - Medical/Surgical History Hx Asthma: Yes Hx Chronic Respiratory Disease: No Hx Diabetes: Yes Hx Cardiac Disease: No Hx Renal Disease: No Hx Cirrhosis: No Hx Alcoholism: No Hx HIV/AIDS: No Hx Splenectomy or Spleen Trauma: No Other PMH: hysterectomy,C- section, laproscopy for ovarian cysts and adhesions; hypothyroid, fibromyalgia, diabetes, asthma, IBS, adhesions, ANGINA, high cholesterol, chron. migranes, ovarien removal, GERD - Social History Smoking Status: Former smoker Constitutional: Initial Vital Signs Temperature (C) 36.4 C 07/22/16 13:06 Heart Rate 84 07/22/16 13:06 Respiratory Rate 22 H 07/22/16 13:06 Blood Pressure 132/86 H 07/22/16 13:06 O2 Sat (%) 95 07/22/16 13:06 O2 Delivery Mode Room Air O2 (L/minute) 1 Allergies/Adverse Reactions: capsaicin Allergy (Verified 07/22/16 13:05) ciprofloxacin [From Cipro] Allergy (Verified 07/22/16 13:05) ciprofloxacin HCl [From Cipro] Allergy (Verified 07/22/16 13:05) morphine Allergy (Verified 07/22/16 13:05) Sulfa (Sulfonamide Antibiotics) Allergy (Verified 07/22/16 13:05) tramadol Allergy (Verified 07/22/16 13:05) venom-wasp [Wasp Venom] Allergy (Verified 07/22/16 13:05) Home Medications: Medication Instructions Recorded Albuterol [Proventil Inhaler HFA 1 - 2 puffs IH Q4H PRN 07/22/16 (*)] Amitriptyline HCl 75 mg PO HS 07/22/16 Atorvastatin Calcium [Lipitor 40 40 mg PO HS 07/22/16 mg (*)] EPINEPHrine [Epipen 0.3 MG] 0.3 mg IM ONCE PRN 07/22/16 Gabapentin [Neurontin 400 MG (*)] 400 mg PO TID 07/22/16 Herbals/Supplements -Info Only 1 ea PO DAILY 07/22/16 Isosorbide Dinitrate [Isosorbide 10 mg PO BID #10 tab 07/22/16 Dinitrate 10 mg (*)] Levothyroxine [Synthroid 137 mcg 137 mcg PO DAILY 07/22/16 (*)] Nitroglycerin [Nitrostat 0.4 mg 0.4 mg SL AD PRN 07/22/16 (*)] Pantoprazole Sodium [Protonix 40mg 40 mg PO HS 07/22/16 (*)] Ranitidine HCl [Zantac] 300 mg PO HS 07/22/16 Topiramate [Topamax 25MG (*)] 25 mg PO HS 07/22/16 amLODIPine BESYLATE [Norvasc 2.5 2.5 mg PO HS 07/22/16 mg (*)] sitaGLIPtin PHOSPHATE [Januvia 100 100 mg PO DAILY 07/22/16 MG (*)] Medical Decision Making ED Course/Re-evaluation: Old medical records reviewed by myself and case discussed with Dr Philip after evaluating patient. 4:00 p.m. patient was re-evaluated with serial examinations, discussed case with secondary supervising physician Dr. Jacque Philip. Patient has been re-evaluated after ntg and at this time she is asymptomatic, headache resolved, chest pain resolved, no dyspnea, no nausea. 4:15 p.m.: Consultation with hospitalist Dr. Froylan Floyd about possible admission. 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 4:35 p.m.: Patient remains symptomatic. Phone consultation with Cardiology RICARDO Celestin who will evaluate the medical record and call me back 4:45 p.m.: Phone consultation with Cardiology RICARDO Celestin who has consulted with Dr. Raul Reyna. They have recommended that the patient does not need to be admitted to the hospital think that acute coronary syndrome is less than likely in this patient. Dr Reyna recommended starting on isosorbide dinitrate 10 mg twice daily and be seen this week (today is Thursday) . They will call her tomorrow to set up this appointment. Will provide the patient with 5 day prescription for this as she will be seen within the next 3 days. - Data Points Laboratory Results: Laboratory Results 07/22/16 14:25 07/22/16 14:25 Medications Given: Discontinued Medications Aspirin (Aspirin) 324 mg PO EDNOW ONE Stop: 07/22/16 14:29 Last Admin: 07/22/16 14:30 Dose: 324 mg Sodium Chloride (Ns) 1,000 mls @ 0 mls/hr IV ONCE ONE PRN Reason: Wide Open Stop: 07/22/16 14:24 Last Admin: 07/22/16 14:42 Dose: 1,000 mls Nitroglycerin (Nitrostat) 0.4 mg SL Q5M PRN PRN Reason: Chest Pain Stop: 07/22/16 14:39 Last Admin: 07/22/16 15:35 Dose: 0.4 mg Departure - Departure Disposition: Home, Routine, Self-Care Clinical Impression: Chest pain, Headache Condition: Good Instructions: Chest Pain (ED), Acute Headache (ED) Referrals: Raul Reyna MD [Medical Doctor] - 1-2 days ([facility] will call you tomorrow morning for an appointment this week.) Prescriptions: Isosorbide Dinitrate [Isosorbide Dinitrate 10 mg (*)] 10 mg PO BID #10 tab
[2016-07-22 15:49] LABS: ANION GAP 14 mEq/L (8-16); CALCIUM 9.8 mg/dL (8.5-10.4); CARBON DIOXIDE 23 mEq/l (22-31); CHLORIDE 107 mEq/L (97-110); CREATININE 0.8 mg/dL (0.6-1.0); GLOMERULAR FILTRATION RATE > 60; GLUCOSE 94 mg/dL (70-100); POTASSIUM 3.7 mEq/L (3.5-5.2); SODIUM 144 mEq/L (134-144)
[2016-07-22 16:00] LABS: TROPONIN I < 0.012 ng/mL (0-0.034)
[2016-07-22] MEDS ORDERED: IOPAMIDOL (ISOVUE-300) 100 ML BTL ONE (16:04)
[2016-07-22 16:09] VITALS: RESP 16
[2016-07-22 17:24] VITALS: BP 121/81; PULSE 92; TEMP 97.7; O2SAT 96
== END 2016-07-22 17:25 | disposition home or self-care (01) ==
LOC: UNDOADMOB 16:12
DX: R51 Headache (principal); R07.9 Chest pain, unspecified; E11.9 Type 2 diabetes mellitus without complications; J45.909 Unspecified asthma, uncomplicated; Z87.891 Personal history of nicotine dependence
CPT/HCPCS: J2405; Q9967

== ENCOUNTER → 2016-09-05 | Outpatient (CLI) | payer OTHER | LOC: FIMAGING 13:48 | PROVIDERS: ATTEND Physician Assistant | DX: D17.79 Benign lipomatous neoplasm of other sites (principal) ==

== ENCOUNTER 2016-10-06 14:52 | Emergency (ER) | payer OTHER ==
[2016-10-06 15:00] VITALS: RESP 20; TEMP 97.7; O2SAT 94
--- NOTE | 2016-10-06 15:52 | EDPHY ---
H & P Time Seen by Provider: 10/06/16 15:19 HPI/ROS: HPI Left foot injury. 46-year-old female by private vehicle. This patient reports that she got the left 4th and 5th toes caught on the edge of a table. She reports that she can them and stretch them laterally on the edge of this table. She is concerned that she may have fractured her toes. She denies any other injury or complaint. ROS: Constitutional: No fever, no chills. No weakness. Musculoskeletal: No back pain. No neck pain. As above. Skin: No rashes. No lacerations or abrasions. Neurological: No focal weakness or altered sensation. Past medical history: Hysterectomy, , ovarian cysts, hypothyroid, fibromyalgia, asthma, chronic migraines, angina, GERD, oophorectomy. Social history: Physical Exam: General Appearance: Alert, no distress. This patient is responding to questions appropriately and in full sentences. This patient appears well- hydrated and well-nourished. Eyes: Pupils equal and round no pallor or injection. No lid edema, erythema or injection. Left foot exam: No tenderness on palpation over the dorsal and ventral metacarpal areas, the cuboid talus and calcaneal bony areas. No bony deformity , crepitus or movement noted on palpation to these areas. On examination of toes 4. And 5, mild tenderness on palpation. No pain elicited with axial compression of these digits. No ecchymosis, no deformity, crepitus or movement on palpation. No clinical evidence of fracture. Digits 1 through 3 are normal no without tenderness on palpation on gross exam. The left foot is neurovascularly intact. Neurological: Motor sensory function is grossly intact. Cranial nerves are normal. Cerebellar function normal. Skin: Warm and dry, no rashes. Musculoskeletal: Neck is supple and nontender. Extremities are symmetrical. All joints range without pain or impingement. Psychiatric: No agitation. No depression. Database: EKG: Imaging: Left foot x-ray series: No evidence of fracture, subluxation, dislocation. Interpreted by me. Procedures: Emergency department course: From triage, the patient was sent for x-rays as above. When I had the results of the studies I discussed them with her. Plan will be to treat her with ibuprofen over the next 2-3 days. Weight-bearing as tolerated. A loose or open shoe with a stiff sole. She will follow up with her primary care physician for re-evaluation in 2-3 days. She is in agreement with this plan. Return to emergency department precautions were reviewed with her. All of her questions were answered. She was discharged in good condition. Differential Diagnosis: The differential diagnosis on this patient includes but is not limited to sprain , contusion of left foot and toes. Fracture, subluxation, dislocation of the left foot unlikely. This represents a partial list of diagnoses considered. These considerations are based on history, physical exam, past history, reassessment and diagnostic testing. Smoking Status: Former smoker Constitutional: Initial Vital Signs Temperature (C) 36.5 C 10/06/16 14:57 Heart Rate 112 H 10/06/16 14:57 Respiratory Rate 20 10/06/16 14:57 Blood Pressure 123/84 H 10/06/16 14:57 O2 Sat (%) 94 10/06/16 14:57 O2 Delivery Mode Room Air Allergies/Adverse Reactions: capsaicin Allergy (Verified 07/22/16 13:05) ciprofloxacin [From Cipro] Allergy (Verified 07/22/16 13:05) ciprofloxacin HCl [From Cipro] Allergy (Verified 07/22/16 13:05) morphine Allergy (Verified 07/22/16 13:05) Sulfa (Sulfonamide Antibiotics) Allergy (Verified 07/22/16 13:05) tramadol Allergy (Verified 07/22/16 13:05) venom-wasp [Wasp Venom] Allergy (Verified 07/22/16 13:05) Home Medications: Medication Instructions Recorded Albuterol [Proventil Inhaler HFA 1 - 2 puffs IH Q4H PRN 07/22/16 (*)] Amitriptyline HCl 75 mg PO HS 07/22/16 Atorvastatin Calcium [Lipitor 40 40 mg PO HS 07/22/16 mg (*)] EPINEPHrine [Epipen 0.3 MG] 0.3 mg IM ONCE PRN 07/22/16 Gabapentin [Neurontin 400 MG (*)] 400 mg PO TID 07/22/16 Herbals/Supplements -Info Only 1 ea PO DAILY 07/22/16 Isosorbide Dinitrate [Isosorbide 10 mg PO BID #10 tab 07/22/16 Dinitrate 10 mg (*)] Levothyroxine [Synthroid 137 mcg 137 mcg PO DAILY 07/22/16 (*)] Nitroglycerin [Nitrostat 0.4 mg 0.4 mg SL AD PRN 07/22/16 (*)] Pantoprazole Sodium [Protonix 40mg 40 mg PO HS 07/22/16 (*)] Ranitidine HCl [Zantac] 300 mg PO HS 07/22/16 Topiramate [Topamax 25MG (*)] 25 mg PO HS 07/22/16 amLODIPine BESYLATE [Norvasc 2.5 2.5 mg PO HS 07/22/16 mg (*)] Farxida 10/06/16 Departure - Departure Disposition: Home, Routine, Self-Care Clinical Impression: Sprain of toe, fourth, left, Sprain of toe, fifth, left Condition: Good Instructions: Foot Sprain (ED) Additional Instructions: Read and follow provided instructions. Follow-up with your primary care physician in 2-3 days for re-evaluation as discussed. Ibuprofen dosin mg every 6 hours with meals for the next 3 days only. Only take as needed for pain. Return to the emergency department for worsening pain, discoloration, swelling or other serious concerns. Referrals: Ramona Magallanes, PAC [Primary Care Provider] - As per Instructions
[2016-10-06 16:16] VITALS: BP 124/83; PULSE 84
== END 2016-10-06 16:16 | disposition home or self-care (01) ==
DX: S93.505A Unspecified sprain of left lesser toe(s), initial encounter (principal); J45.909 Unspecified asthma, uncomplicated; Z87.891 Personal history of nicotine dependence; W23.0XXA Caught, crushed, jammed, or pinched between moving objects, initial encounter

== ENCOUNTER → 2016-11-12 | Outpatient (CLI) | payer OTHER | LOC: CIMAGING 15:55 | PROVIDERS: ATTEND Physical Medicine & Rehabilitation | DX: M25.532 Pain in left wrist (principal) | CPT/HCPCS: 73110-PO ==

== ENCOUNTER 2016-12-03 12:49 | Emergency (ER) | payer OTHER ==
[2016-12-03 13:00] VITALS: TEMP 98.1
[2016-12-03] MEDS ORDERED: HYDROmorphONE/DILAUDID 1 MG/ML INJ IVP ONE ×2 (14:09→16:04)
[2016-12-03] MEDS ORDERED: NS 1,000 ML IV ONE (14:09)
[2016-12-03] MEDS ORDERED: ONDANSETRON 4 MG/2 ML VIAL IVP ONE (14:09)
[2016-12-03 14:16] LABS: % IMMATURE GRANULYOCYTES 0.2 % (0.0-1.1); ABSOLUTE IMMATURE GRANULOCYTES 0.01 10^3/uL (0.00-0.10); ADD DIFF? NO; ADD MORPH? NO; ADD SCAN? NO; ATYPICAL LYMPHOCYTE FLAG 0 (0-99); FRAGMENT RBC FLAG 0 (0-99); HEMATOCRIT 45.9 % (38.0-47.0); HEMOGLOBIN 15.5 g/dL (12.6-16.3); LEFT SHIFT FLG 0 (0-99); LIPEMIA HEMOLYSIS FLAG 90 (0-99); MEAN CELL HEMOGLOBIN 31.8 pg (27.9-34.1); MEAN CELL HEMOGLOBIN CONCENTR. 33.8 g/dL (32.4-36.7); MEAN CELL VOLUME 94.1 fL (81.5-99.8); MEAN PLATELET VOLUME 9.9 fL (8.7-11.7); PLATELET CLUMPS FLAG 0 (0-99); PLATELET COUNT 243 10^3/uL (150-400); RED BLOOD CELL COUNT 4.88 10^6/uL (4.18-5.33); RED CELL DISTRIBUTION WIDTH 12.5 % (11.5-15.2)
[2016-12-03 14:27] LABS: ALANINE AMINOTRANSFERASE 43 IU/L (9-52); ALBUMIN 4.5 g/dL (3.5-5.0); ALKALINE PHOSPHATASE 141 IU/L (38-126); ANION GAP 13 mEq/L (8-16); ASPARTATE AMINOTRANSFERASE 21 IU/L (14-46); BILIRUBIN,TOTAL 0.6 mg/dL (0.1-1.4); BILIRUBIN-CONJUGATED 0.4 mg/dL (0.0-0.5); BILIRUBIN-UNCONJUGATED 0.2 mg/dL (0.0-1.1); CALCIUM 9.6 mg/dL (8.5-10.4); CARBON DIOXIDE 21 mEq/l (22-31); CHLORIDE 107 mEq/L (97-110); CREATININE 0.8 mg/dL (0.6-1.0); GLOMERULAR FILTRATION RATE > 60; GLUCOSE 97 mg/dL (70-100); POTASSIUM 3.6 mEq/L (3.5-5.2); SODIUM 141 mEq/L (134-144); TOTAL PROTEIN 7.6 g/dL (6.3-8.2)
[2016-12-03 14:53] VITALS: O2SAT 95
[2016-12-03] MEDS ORDERED: IOPAMIDOL (ISOVUE-300) 100 ML BTL ONE (15:07)
--- NOTE | 2016-12-03 16:04 | EDPHY ---
H & P Stated Complaint: RLQ;saw PCP,has CT order in hand, CT can't do it today (?), constipated Time Seen by Provider: 12/03/16 14:03 HPI/ROS: Chief complaint: Abdominal pain History of present illness: This is a 46-year-old female who presents to the emergency department for evaluation of abdominal pain. Patient reports the onset of symptoms over the last few days. Pain is primarily been in the lower aspect of the abdomen. Most intense in the right lower quadrant. She saw her primary care doctor who ordered CT scan for appendicitis but she was unable to get in for an outpatient 1 today and therefore presents here. Review of systems: A 10 point review of systems was obtained and other than described above was negative - Personal History LMP (Females 10-55): Hysterectomy Current Tetanus Diphtheria and Acellular Pertussis (TDAP): Yes Tetanus Vaccine Date: < 10 years - Medical/Surgical History Hx Asthma: Yes Hx Chronic Respiratory Disease: No Hx Diabetes: Yes Hx Cardiac Disease: No Hx Renal Disease: No Hx Cirrhosis: No Hx Alcoholism: No Hx HIV/AIDS: No Hx Splenectomy or Spleen Trauma: No Other PMH: hysterectomy,C- section, laproscopy for ovarian cysts and adhesions; hypothyroid, fibromyalgia, diabetes, asthma, IBS, adhesions, ANGINA, high cholesterol, chron. migranes, ovarien removal, GERD - Social History Smoking Status: Former smoker - Physical Exam Exam: General Appearance: Alert, nontoxic. Eyes: Pupils equal and round no pallor or injection. ENT, Mouth: Mucous membranes moist. Respiratory: There are no retractions, lungs are clear to auscultation. Cardiovascular: Regular rate and rhythm. Gastrointestinal: Had bowel sounds are normal. Abdomen is soft and nondistended. There is tenderness throughout the lower quadrants with point of maximal intensity in the right lower quadrant including over McBurney's. No peritoneal signs. Neurological: Alert and oriented x4. Strength and sensation intact and symmetrical. Skin: Warm and dry, no rashes. Musculoskeletal: Neck is supple non tender. Extremities are symmetrical, full range of motion. Psychiatric: Patient is oriented X 3, there is no agitation. Constitutional: Initial Vital Signs Temperature (C) 36.7 C 12/03/16 12:50 Heart Rate 89 12/03/16 12:50 Respiratory Rate 18 12/03/16 12:50 Blood Pressure 139/104 H 12/03/16 12:50 O2 Sat (%) 96 12/03/16 12:50 O2 Delivery Mode Room Air O2 (L/minute) 2 Allergies/Adverse Reactions: capsaicin Allergy (Verified 12/03/16 12:56) ciprofloxacin [From Cipro] Allergy (Verified 12/03/16 12:56) ciprofloxacin HCl [From Cipro] Allergy (Verified 12/03/16 12:56) morphine Allergy (Verified 12/03/16 12:56) Sulfa (Sulfonamide Antibiotics) Allergy (Verified 12/03/16 12:56) tramadol Allergy (Verified 12/03/16 12:56) venom-wasp [Wasp Venom] Allergy (Verified 12/03/16 12:56) Home Medications: Medication Instructions Recorded Albuterol [Proventil Inhaler HFA 1 - 2 puffs IH Q4H PRN 07/22/16 (*)] Amitriptyline HCl 75 mg PO HS 07/22/16 Atorvastatin Calcium [Lipitor 40 40 mg PO HS 07/22/16 mg (*)] EPINEPHrine [Epipen 0.3 MG] 0.3 mg IM ONCE PRN 07/22/16 Gabapentin [Neurontin 400 MG (*)] 400 mg PO TID 07/22/16 Herbals/Supplements -Info Only 1 ea PO DAILY 07/22/16 Isosorbide Dinitrate [Isosorbide 10 mg PO BID #10 tab 07/22/16 Dinitrate 10 mg (*)] Levothyroxine [Synthroid 137 mcg 137 mcg PO DAILY 07/22/16 (*)] Nitroglycerin [Nitrostat 0.4 mg 0.4 mg SL AD PRN 07/22/16 (*)] Pantoprazole Sodium [Protonix 40mg 40 mg PO HS 07/22/16 (*)] Ranitidine HCl [Zantac] 300 mg PO HS 07/22/16 Topiramate [Topamax 25MG (*)] 25 mg PO HS 07/22/16 amLODIPine BESYLATE [Norvasc 2.5 2.5 mg PO HS 07/22/16 mg (*)] Farxida 10/06/16 Dicyclomine [Bentyl 20 MG (*)] 20 mg PO QID #10 tab 12/03/16 Medical Decision Making - Diagnostics Imaging: Discussed imaging studies w/ call center agent Radiologist ED Course/Re-evaluation: Patient seen under the supervision of my secondary supervising physician Dr. Jacque Philip. Patient presents to the emergency department for evaluation of abdominal pain. On presentation she is nontoxic. Afebrile and vital signs are stable. Examination of the abdomen shows benign serial abdominal examinations. Blood studies, CT scan and urinalysis largely unremarkable. My suspicion for serious underlying pathology requiring further emergency department intervention is low. She is discharged home. Home care is discussed including management of constipation and pain management. She is to follow up with her primary care doctor recheck. Return precautions are given. Differential Diagnosis: Included but not limited to appendicitis, colitis, diverticulitis, constipation , an associated complications, urinary tract disease - Data Points Laboratory Results: Laboratory Results 12/03/16 14:06 12/03/16 14:06 Medications Given: Discontinued Medications Dicyclomine HCl (Bentyl) 20 mg PO EDNOW ONE Stop: 12/03/16 16:29 Last Admin: 12/03/16 16:42 Dose: 20 mg Hydromorphone HCl (Dilaudid) 1 mg IVP EDNOW ONE Stop: 12/03/16 14:10 Last Admin: 12/03/16 14:21 Dose: 1 mg Sodium Chloride (Ns) 1,000 mls @ 0 mls/hr IV EDNOW ONE; Wide Open PRN Reason: Protocol Stop: 12/03/16 14:10 Last Admin: 12/03/16 14:20 Dose: 1,000 mls Ondansetron HCl (Zofran) 4 mg IVP EDNOW ONE Stop: 12/03/16 14:10 Last Admin: 12/03/16 14:21 Dose: 4 mg Departure - Departure Disposition: Home, Routine, Self-Care Clinical Impression: Abdominal pain Condition: Good Instructions: Abdominal Pain (ED) Additional Instructions: Follow-up with your primary care doctor tomorrow for recheck Use magnesium citrate for constipation Use Bentyl for pain If symptoms worsen or new symptoms develop return to the emergency room for recheck Referrals: Ramona Magallanes PAC [Primary Care Provider] - As per Instructions Prescriptions: Dicyclomine [Bentyl 20 MG (*)] 20 mg PO QID #10 tab
[2016-12-03 16:24] LABS: COLOR PALE YELLOW; LEUKOCYTE ESTERASE,URINE NEGATIVE (NEGATIVE); NITRITE,URINE NEGATIVE (NEGATIVE)
[2016-12-03] MEDS ORDERED: DICYCLOMINE 10 MG CAP PO ONE (16:28)
[2016-12-03 16:53] VITALS: BP 132/94; PULSE 85; RESP 16
== END 2016-12-03 16:52 | disposition home or self-care (01) ==
DX: R10.31 Right lower quadrant pain (principal); J45.909 Unspecified asthma, uncomplicated; E11.9 Type 2 diabetes mellitus without complications; E86.9 Volume depletion, unspecified; Z87.891 Personal history of nicotine dependence; Z90.710 Acquired absence of both cervix and uterus
CPT/HCPCS: 96374; J1170; J2405; Q9967

== ENCOUNTER 2017-01-14 16:15 | Emergency (ER) | payer OTHER ==
--- NOTE | 2017-01-14 16:32 | CPEKG ---
Heart Rate: 84 RR Interval: 714 P-R Interval: 180 QRSD Interval: 82 QT Interval: 392 QTC Interval: 464 P [place]: 48 QRS [place]: 19 T Wave [place]: 24 EKG Severity - BORDERLINE ECG - EKG Impression: SINUS RHYTHM EKG Impression: BORDERLINE R WAVE PROGRESSION, ANTERIOR LEADS EKG Impression: BORDERLINE T ABNORMALITIES, ANTERIOR LEADS Electronically Signed By: Jacque Philip 14-Jan-2017 22:47:51
[2017-01-14] MEDS ORDERED: NS 500 ML IV ONE (16:33)
[2017-01-14] MEDS ORDERED: ASPIRIN 81 MG CHEWABLE TAB PO ONE (16:33)
[2017-01-14 16:42] LABS: % IMMATURE GRANULYOCYTES 0.1 % (0.0-1.1); ABSOLUTE IMMATURE GRANULOCYTES 0.01 10^3/uL (0.00-0.10); ADD DIFF? NO; ADD MORPH? NO; ADD SCAN? NO; ATYPICAL LYMPHOCYTE FLAG 60 (0-99); FRAGMENT RBC FLAG 0 (0-99); HEMATOCRIT 43.1 % (38.0-47.0); HEMOGLOBIN 14.6 g/dL (12.6-16.3); LEFT SHIFT FLG 0 (0-99); LIPEMIA HEMOLYSIS FLAG 90 (0-99); MEAN CELL HEMOGLOBIN CONCENTR. 33.9 g/dL (32.4-36.7); MEAN CELL VOLUME 91.5 fL (81.5-99.8); MEAN PLATELET VOLUME 9.8 fL (8.7-11.7); PLATELET CLUMPS FLAG 0 (0-99); PLATELET COUNT 265 10^3/uL (150-400); RED BLOOD CELL COUNT 4.71 10^6/uL (4.18-5.33); RED CELL DISTRIBUTION WIDTH 12.4 % (11.5-15.2)
[2017-01-14 16:51] LABS: INR 0.92 (0.83-1.16); PROTIME(PATIENT) 12.6 SEC (12.0-15.0)
[2017-01-14 16:52] LABS: APTT 29.1 SEC (23.0-38.0)
[2017-01-14 16:57] LABS: ANION GAP 16 mEq/L (8-16); CALCIUM 9.7 mg/dL (8.5-10.4); CARBON DIOXIDE 19 mEq/l (22-31); CHLORIDE 106 mEq/L (97-110); CREATININE 1.1 mg/dL (0.6-1.0); GLOMERULAR FILTRATION RATE 53; GLUCOSE 124 mg/dL (70-100); POTASSIUM 3.9 mEq/L (3.5-5.2); SODIUM 141 mEq/L (134-144)
[2017-01-14] MEDS ORDERED: NITROGLYCERIN 0.4 MG BTL SL ONE (17:08)
[2017-01-14 17:09] LABS: CREATINE KINASE-MB FRACTION 0.92 ng/mL (0.00-3.19); TROPONIN I < 0.012 ng/mL (0.000-0.034)
[2017-01-14] MEDS ORDERED: NITROGLYCERIN 0.4 MG BTL SL PRN (17:11)
--- NOTE | 2017-01-14 17:15 | EDPHY ---
H & P Time Seen by Provider: 01/14/17 16:33 HPI/ROS: HPI Chest pain. 46-year-old female by private vehicle with significant other. This patient has a history of coronary artery vasospasm. She is currently being managed by Dr. Ellis Ramirez and colleagues at [facility]. She reports that she had a coronary angiogram a little over 2 years ago and this was clean. She does not have any stents plates. She reports that since 1:00 p.m. she has had chest pains which she describes as typical of her coronary artery vasospasm associated pain. Described as left upper chest and shoulder pain, sharp with radiation into the neck and the left arm. She also reports a history of a recent long drive. She reports that she does get relief from this pain with nitroglycerin but she did not have her nitroglycerin on her and had her significant other bring her to the emergency department. ROS: Constitutional: No fever, no chills. No weakness. Eyes: No discharge. No changes in vision. ENT: No sore throat. No nasal congestion or rhinorrhea. Respiratory: No cough. No shortness of breath. Cardiac: As above, no palpitations. Gastrointestinal: No abdominal pain, no vomiting, no diarrhea. Genitourinary: No hematuria. No dysuria or increased frequency with urination. Musculoskeletal: No back pain. No neck pain. No myalgias or arthralgias. Skin: No rashes. Neurological: No headache. No focal weakness or altered sensation. Past medical history: As above, hyperlipidemia, GERD, type 2 diabetes, hypothyroidism, fibromyalgia, asthma, chronic migraines, hysterectomy, , laparoscopy for ovarian cyst with adhesions. Social history: Nonsmoker. No alcohol. Here with significant other. Physical Exam: General Appearance: Alert, appears anxious and uncomfortable. This patient is responding to questions appropriately and in full sentences. This patient appears well-hydrated and well-nourished. Eyes: Pupils equal and round no pallor or injection. No lid edema, erythema or injection. Respiratory: There are no retractions, lungs are clear to auscultation with good air movement bilaterally. Cardiovascular: Regular rate and rhythm. No murmur. Gastrointestinal: Abdomen is soft and nontender, no masses, bowel sounds normal. No focal tenderness at McBurney's point. No Meek sign. Neurological: Motor sensory function is grossly intact. Cranial nerves are normal. Gait is normal. Skin: Warm and dry, no rashes. Musculoskeletal: Neck is supple and nontender. Extremities are symmetrical. All joints range without pain or impingement. Psychiatric: No agitation. No depression. Database: EKG: EKG time is 4:29 p.m.; EKG shows a narrow complex normal sinus rhythm with a ventricular rate of ED for. Poor R-wave progression in the anterior precordial leads. Nonspecific T-wave abnormalities anterior leads. The [place], QRS, QT intervals are within normal limits. There are no ST-T wave changes indicative of ischemic or injury pattern. No evidence of right heart strain. Interpreted by me. Imaging: Chest x-ray AP portable; the cardiac mediastinal silhouette is unremarkable. No evidence of infiltrate or pneumothorax. No acute cardiopulmonary disease process noted. Interpreted by me. Procedures: Emergency department course: IV placed. Vital signs reviewed and are unremarkable. She was given 324 mg of chewed aspirin. After my evaluation she was given sublingual nitroglycerin for her pain. EKG obtained and reviewed by myself. 5:45 p.m., patient re-evaluated. Resting comfortably at this time. Significant other is at the bedside. She has had complete resolution of her pain. I discussed the results of her emergency department workup. I discussed admission with her. She does not want to be admitted. I expressed my concerns. The patient competently engages in shared decision making. They demonstrate capacitance to make decisions. She will follow up with her enterprise engineer, Dr. Ellis Ramirez, tomorrow. She has nitroglycerin at home now. She will return to the emergency department immediately should her pain return. I reviewed return to emergency department precautions thoroughly with her. All of her questions were answered. She was discharged in good condition with her significant other. Differential Diagnosis: The differential diagnosis on this patient includes but is not limited to anxiety reaction, coronary artery vasospasm without atherosclerotic disease. Pulmonary embolism, acute coronary syndrome unlikely. This represents a partial list of diagnoses considered. These considerations are based on history , physical exam, past history, reassessment and diagnostic testing. Smoking Status: Former smoker Constitutional: Initial Vital Signs Temperature (C) 36.6 C 01/14/17 16:20 Heart Rate 89 01/14/17 16:20 Respiratory Rate 20 01/14/17 16:20 Blood Pressure 138/97 H 01/14/17 16:20 O2 Sat (%) 98 01/14/17 16:20 O2 Delivery Mode Room Air Allergies/Adverse Reactions: capsaicin Allergy (Verified 01/14/17 16:19) ciprofloxacin [From Cipro] Allergy (Verified 01/14/17 16:19) ciprofloxacin HCl [From Cipro] Allergy (Verified 01/14/17 16:19) morphine Allergy (Verified 01/14/17 16:19) Sulfa (Sulfonamide Antibiotics) Allergy (Verified 01/14/17 16:19) tramadol Allergy (Verified 01/14/17 16:19) venom-wasp [Wasp Venom] Allergy (Verified 01/14/17 16:19) Home Medications: Medication Instructions Recorded Albuterol [Proventil Inhaler HFA 1 - 2 puffs IH Q4H PRN 07/22/16 (*)] Amitriptyline HCl 75 mg PO HS 07/22/16 Atorvastatin Calcium [Lipitor 40 40 mg PO HS 07/22/16 mg (*)] EPINEPHrine [Epipen 0.3 MG] 0.3 mg IM ONCE PRN 07/22/16 Gabapentin [Neurontin 400 MG (*)] 400 mg PO TID 07/22/16 Herbals/Supplements -Info Only 1 ea PO DAILY 07/22/16 Isosorbide Dinitrate [Isosorbide 10 mg PO BID #10 tab 07/22/16 Dinitrate 10 mg (*)] Levothyroxine [Synthroid 137 mcg 137 mcg PO DAILY 07/22/16 (*)] Nitroglycerin [Nitrostat 0.4 mg 0.4 mg SL AD PRN 07/22/16 (*)] Pantoprazole Sodium [Protonix 40mg 40 mg PO HS 07/22/16 (*)] Ranitidine HCl [Zantac] 300 mg PO HS 07/22/16 Topiramate [Topamax 25MG (*)] 25 mg PO HS 07/22/16 amLODIPine BESYLATE [Norvasc 2.5 2.5 mg PO HS 07/22/16 mg (*)] Farxida 10/06/16 Dicyclomine [Bentyl 20 MG (*)] 20 mg PO QID #10 tab 12/03/16 Medical Decision Making - Data Points Laboratory Results: Laboratory Results 01/14/17 16:32 01/14/17 16:32 01/14/17 01/14/17 01/14/17 16:32 16:32 16:32 WBC RBC Hgb Hct MCV MCH MCHC RDW Plt Count MPV Neut % (Auto) Lymph % (Auto) [place] % (Auto) Eos % (Auto) Baso % (Auto) Nucleat RBC Rel Count Absolute Neuts (auto) Absolute Lymphs (auto) Absolute Monos (auto) Absolute Eos (auto) Absolute Basos (auto) Absolute Nucleated RBC Immature Gran % Immature Gran # PT 12.6 SEC SEC (12.0-15.0) INR 0.92 (0.83-1.16) APTT 29.1 SEC SEC (23.0-38.0) D-Dimer 0.38 ug/mLFEU ug/mLFEU (0.00-0.50) Sodium 141 mEq/L mEq/L (134-144) Potassium 3.9 mEq/L mEq/L (3.5-5.2) Chloride 106 mEq/L mEq/L (97-110) Carbon Dioxide 19 mEq/l L mEq/l (22-31) Anion Gap 16 mEq/L mEq/L (8-16) BUN 19 mg/dL mg/dL (7-23) Creatinine 1.1 mg/dL H mg/dL (0.6-1.0) Estimated GFR 53 Glucose 124 mg/dL H mg/dL (70-100) Calcium 9.7 mg/dL mg/dL (8.5-10.4) Creatine Kinase 67 IU/L IU/L (0-156) CK-MB (CK-2) Fraction 0.92 ng/mL ng/mL (0.00-3.19) Troponin I < 0.012 ng/mL ng/mL (0.000-0.034) Beta HCG, Qual NEGATIVE 01/14/17 16:32 WBC 7.04 10^3/uL 10^3/uL (3.80-9.50) RBC 4.71 10^6/uL 10^6/uL (4.18-5.33) Hgb 14.6 g/dL g/dL (12.6-16.3) Hct 43.1 % % (38.0-47.0) MCV 91.5 fL fL (81.5-99.8) MCH 31.0 pg pg (27.9-34.1) MCHC 33.9 g/dL g/dL (32.4-36.7) RDW 12.4 % % (11.5-15.2) Plt Count 265 10^3/uL 10^3/uL (150-400) MPV 9.8 fL fL (8.7-11.7) Neut % (Auto) 50.7 % % (39.3-74.2) Lymph % (Auto) 40.1 % % (15.0-45.0) [place] % (Auto) 6.3 % % (4.5-13.0) Eos % (Auto) 2.1 % % (0.6-7.6) Baso % (Auto) 0.7 % % (0.3-1.7) Nucleat RBC Rel Count 0.0 % % (0.0-0.2) Absolute Neuts (auto) 3.57 10^3/uL 10^3/uL (1.70-6.50) Absolute Lymphs (auto) 2.82 10^3/uL 10^3/uL (1.00-3.00) Absolute Monos (auto) 0.44 10^3/uL 10^3/uL (0.30-0.80) Absolute Eos (auto) 0.15 10^3/uL 10^3/uL (0.03-0.40) Absolute Basos (auto) 0.05 10^3/uL 10^3/uL (0.02-0.10) Absolute Nucleated RBC 0.00 10^3/uL 10^3/uL (0-0.01) Immature Gran % 0.1 % % (0.0-1.1) Immature Gran # 0.01 10^3/uL 10^3/uL (0.00-0.10) PT INR APTT D-Dimer Sodium Potassium Chloride Carbon Dioxide Anion Gap BUN Creatinine Estimated GFR Glucose Calcium Creatine Kinase CK-MB (CK-2) Fraction Troponin I Beta HCG, Qual Medications Given: Nitroglycerin (Nitrostat) 0.4 mg SL Q5M PRN PRN Reason: Chest Pain Last Admin: 01/14/17 17:09 Dose: 0.4 mg Discontinued Medications Aspirin (Aspirin) 324 mg PO EDNOW ONE Stop: 01/14/17 16:34 Last Admin: 01/14/17 16:47 Dose: 324 mg Sodium Chloride (Ns) 500 mls @ 1,000 mls/hr IV EDNOW ONE PRN Reason: Protocol Stop: 01/14/17 17:02 Last Admin: 01/14/17 16:48 Dose: 500 mls Departure - Departure Disposition: Home, Routine, Self-Care Clinical Impression: Chest pain, History of coronary artery vasospasm Condition: Good Instructions: Chest Pain (ED) Additional Instructions: Read and follow provided instructions. Follow-up with your enterprise engineer, Dr. Ellis Ramirez or his physician expanded duty dental assistant tomorrow for re-evaluation as discussed. You should obtain a stress test within the next 2-3 days. Take your medication as prescribed. Return to the emergency department for return of chest pain, shortness of breath or other serious concerns. Referrals: Ramona Magallanes PAC [Primary Care Provider] - As per Instructions Ellis Ramirez MD [Medical Doctor] - As per Instructions
[2017-01-14 18:07] VITALS: BP 131/87; PULSE 81; RESP 18; TEMP 97.5; O2SAT 97
== END 2017-01-14 18:07 | disposition home or self-care (01) ==
DX: R07.9 Chest pain, unspecified (principal); E11.9 Type 2 diabetes mellitus without complications; J45.909 Unspecified asthma, uncomplicated; E86.9 Volume depletion, unspecified; Z86.79 Personal history of other diseases of the circulatory system; Z87.891 Personal history of nicotine dependence

== ENCOUNTER → 2017-03-26 | Outpatient (CLI) | payer OTHER | LOC: FIMAGING 10:12 | PROVIDERS: ATTEND Otolaryngology | DX: J34.9 Unspecified disorder of nose and nasal sinuses (principal) ==

== ENCOUNTER → 2017-06-30 | Outpatient (CLI) | payer OTHER ==
[~2017-06-30] MED LIST: GADOBUTROL 10 ML VIAL IVP ONE
== END ==
LOC: FIMAGING 13:36
PROVIDERS: ATTEND Otolaryngology
DX: Z12.31 Encounter for screening mammogram for malignant neoplasm of breast (principal); R94.02 Abnormal brain scan; Z18.10 Retained metal fragments, unspecified
CPT/HCPCS: A9585

== ENCOUNTER 2017-08-26 09:33 | Emergency (ER) | payer OTHER ==
[2017-08-26 09:50] VITALS: BP 131/86
--- NOTE | 2017-08-26 10:05 | EDPHY ---
H & P Time Seen by Provider: 08/26/17 09:52 HPI/ROS: CHIEF COMPLAINT: Left ankle injury HISTORY OF PRESENT ILLNESS: 47-year-old female presents to the emergency department with injury to her left ankle. The patient was walking from the parking garage into the hospital to work when her left ankle just "gave way" and she rolled her ankle". She states that this has happened before. She is having difficulty bearing weight on her left ankle. She complains of isolated pain to the lateral aspect of the left ankle. Denies pain in the left calf or left knee. ROS: Denies numbness or tingling in her toes. Denies hitting her head or losing consciousness. Past Medical/Surgical History: Hysterectomy, , laparoscopy for ovarian cysts and adhesions, hypothyroidism, fibromyalgia, diabetes, asthma, IBS, angina, dyslipidemia, chronic migraines, GERD Social History: and lives in [place] Smoking Status: Former smoker Physical Exam: On examination, the patient has swelling noted to the lateral aspect of the left ankle. Reproducible pain with palpation over the lateral malleolus as well as just distal to the lateral malleolus. Limited dorsiflexion secondary to pain. Pulse full plantar flexion. No obvious ligament instability. Nontender to palpate to the medial aspect of the left ankle. Normal sensation to light touch with normal 2 point discrimination. Calf is nontender. Left knee is stable. Constitutional: Initial Vital Signs Temperature (C) 36.8 C 08/26/17 09:48 Heart Rate 101 H 08/26/17 09:48 Respiratory Rate 16 08/26/17 09:48 Blood Pressure 131/86 H 08/26/17 09:48 O2 Sat (%) 97 08/26/17 09:48 O2 Delivery Mode Room Air Allergies/Adverse Reactions: capsaicin Allergy (Verified 01/14/17 16:19) ciprofloxacin [From Cipro] Allergy (Verified 01/14/17 16:19) ciprofloxacin HCl [From Cipro] Allergy (Verified 01/14/17 16:19) morphine Allergy (Verified 01/14/17 16:19) Sulfa (Sulfonamide Antibiotics) Allergy (Verified 01/14/17 16:19) tramadol Allergy (Verified 01/14/17 16:19) venom-wasp [Wasp Venom] Allergy (Verified 01/14/17 16:19) Home Medications: Medication Instructions Recorded Albuterol [Proventil Inhaler HFA 1 - 2 puffs IH Q4H PRN 07/22/16 (*)] Amitriptyline HCl 75 mg PO HS 07/22/16 Atorvastatin Calcium [Lipitor 40 40 mg PO HS 07/22/16 mg (*)] EPINEPHrine [Epipen 0.3 MG] 0.3 mg IM ONCE PRN 07/22/16 Gabapentin [Neurontin 400 MG (*)] 400 mg PO TID 07/22/16 Herbals/Supplements -Info Only 1 ea PO DAILY 07/22/16 Isosorbide Dinitrate [Isosorbide 10 mg PO BID #10 tab 07/22/16 Dinitrate 10 mg (*)] Levothyroxine [Synthroid 137 mcg 137 mcg PO DAILY 07/22/16 (*)] Nitroglycerin [Nitrostat 0.4 mg 0.4 mg SL AD PRN 07/22/16 (*)] Pantoprazole Sodium [Protonix 40mg 40 mg PO HS 07/22/16 (*)] Ranitidine HCl [Zantac] 300 mg PO HS 07/22/16 Topiramate [Topamax 25MG (*)] 25 mg PO HS 07/22/16 amLODIPine BESYLATE [Norvasc 2.5 2.5 mg PO HS 07/22/16 mg (*)] Farxida 10/06/16 Dicyclomine [Bentyl 20 MG (*)] 20 mg PO QID #10 tab 12/03/16 Hydrocodone/APAP 5/325 [[place] 1 each PO Q4-6PRN PRN #10 tab 08/26/17 5/325 (*)] MDM/Departure - [facility] Imaging Results: Imaging Impressions Ankle X-Ray 08/26/17 09:51 Impression: Transversely-oriented fracture at the fibular tip with the avulsion of the lateral malleolus and associated soft tissue swelling with an ankle joint effusion. Imaging: I viewed and interpreted images myself ED Course/Re-evaluation: 47-year-old female presents to the emergency department with pain in her left ankle. X-rays reveal avulsion fracture to the distal fibula. Patient has her own boot at home and she would like to use her own boot. She was placed in an Pan wrap and given crutches in the emergency department and will be nonweightbearing until she applies her boot when she gets home. She was given orthopedic referral. Encouraged to use anti-inflammatories. - Depart Disposition: Home, Routine, Self-Care Clinical Impression: Closed left ankle fracture Qualifiers: Encounter type: initial encounter Qualified Code(s): S82.892A - Other fracture of left lower leg, initial encounter for closed fracture Condition: Good Instructions: Ankle Fracture (ED) Additional Instructions: Marsh boot for comfort and support. Ibuprofen 600 mg every 8 hr as needed for pain. Weightbear as tolerated or use crutches. You should be nonweightbearing and use crutches until you put the boot on. Prescriptions: Hydrocodone/APAP 5/325 [[place] 5/325 (*)] 1 each PO Q4-6PRN PRN #10 tab PRN Reason: Pain, Severe Referrals: Chepe Diez MD [Medical Doctor] - 2-3 days without fail (Orthopedic surgeon on-call)
== END 2017-08-26 10:58 | disposition home or self-care (01) ==
DX: S82.892A Other fracture of left lower leg, initial encounter for closed fracture (principal); E11.9 Type 2 diabetes mellitus without complications; J45.909 Unspecified asthma, uncomplicated; Z87.891 Personal history of nicotine dependence; X50.9XXA Other and unspecified overexertion or strenuous movements or postures, initial encounter; Y92.89 Other specified places as the place of occurrence of the external cause; Y99.8 Other external cause status; Y93.01 Activity, walking, marching and hiking

== ENCOUNTER 2018-02-02 09:41 | Emergency (ER) | payer OTHER ==
[2018-02-02] MEDS ORDERED: ALBUTEROL 3 ML DEYVIAL IH ONE (09:55)
--- NOTE | 2018-02-02 10:14 | EDPHY ---
H & P Smoking Status: Former smoker Time Seen by Provider: 02/02/18 09:48 HPI/ROS: CLINICAL IMPRESSION: Laryngitis, bronchitis ASSESSMENT/PLAN: A 47-year-old female presents to the emergency department with 3 days of hoarseness, sore throat, and cough. Patient has had negative rapid strep test. She reports no fevers, myalgias or chills and did not test herself for the flu. Patient is tolerating secretions well, able to eat and drink. She received an albuterol neb with improved breathing. Vital signs remained stable , no hypoxia. No evidence of bacterial upper respiratory infection. Patient was given a prescription for an albuterol inhaler with spacer and a short burst of steroids. Initial dose given in the ED. Voice rest encouraged, PCP follow- up recommended, warning signs return to ED sooner outlined in person and in discharge papers. DIFFERENTIAL DX: Differential diagnosis includes but not limited to viral laryngitis, vocal cord polyp, bronchitis, asthma exacerbation, pneumonia ED PROCEDURES: None performed ED COURSE: 10:50 a.m.:. Patient reassessed, feeling much better, her employer has visited her in the ED and requested she stay home. She is open to doing a prednisone taper for laryngitis and her cough. Will also give albuterol with inhaler. 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 Patient had a rapid strep test 2 days ago that was negative. She has had persistent laryngitis since that time. She does have a history of asthma but has been out of her medication for some time. This is only taken as needed. She has an appointment with her primary care on the . She is noticing increased shortness of breath and chest tightness with her cough. No fevers or chills. She did get a flu shot this year. No rash. She has been able to eat and drink well. PAST MEDICAL HISTORY: Hypothyroidism, fibromyalgia, diabetes, asthma, IBS, angina, hyperlipidemia, chronic migraines, GERD Pertinent Past Surgical History: Hysterectomy, , oophorectomy Family History: None reported Social History: Works in [employer] laboratory, nonsmoker ROS: A full 10 point review of systems was negative except for those mentioned in HPI. PHYSICAL EXAM: General Appearance: Alert, oriented, appropriate, cooperative, NAD, well hydrated, non-toxic appearing, VSS, no hypoxia, speaking in full sentences, no respiratory distress, hoarse voice noted. HEENT: TMs are clear bilaterally no perforation or FB, no injection, no evidence of serous or mucopurulent otitis. Oropharynx clear is no erythema or exudates, no tonsillar hypertrophy or asymmetry. Dentition without abnormality. Eyes: PERRLA, no acute vision change, nystagmus, swelling, discharge, pain or photosensitivity. Conjunctiva pink, no pallor or injection Neck: Supple, nontender, no lymphadenopathy, no midline pain, FROM, no meningismus. Respiratory: There are no retractions, lungs are clear to auscultation, mildly diminished breath sounds bilateral lower lobes. Cardiac: Regular rate and rhythm, no murmurs or gallops. Gastrointestinal: Abdomen is soft, nontender, bowel sounds normal, no masses/ hernia, no rigidity, guarding or focal peritoneal findings. Skin: Warm, dry, no rashes, no nodules on palpation. MEDICAL DECISION MAKING: Patient was seen independently. Secondary supervising physician at time of evaluation was Dr. Hassan . Diagnosis: Laryngitis, bronchitis. New, requires workup Summary: See Assessment and Plan for summary of ED visit Patient Progress: Improved. (Ellis Hogan) Constitutional: Initial Vital Signs Temperature (C) 36.7 C 02/02/18 09:44 Heart Rate 92 02/02/18 09:44 Respiratory Rate 18 02/02/18 09:44 Blood Pressure 129/92 H 02/02/18 09:44 O2 Sat (%) 96 02/02/18 09:44 O2 Delivery Mode Room Air Allergies/Adverse Reactions: capsaicin Allergy (Verified 02/02/18 09:43) ciprofloxacin [From Cipro] Allergy (Verified 02/02/18 09:43) ciprofloxacin HCl [From Cipro] Allergy (Verified 02/02/18 09:43) morphine Allergy (Verified 02/02/18 09:43) Sulfa (Sulfonamide Antibiotics) Allergy (Verified 02/02/18 09:43) tramadol Allergy (Verified 02/02/18 09:43) venom-wasp [Wasp Venom] Allergy (Verified 02/02/18 09:43) Home Medications: Medication Instructions Recorded Albuterol [Proventil Inhaler HFA 1 - 2 puffs IH Q4H PRN 07/22/16 (*)] Amitriptyline HCl 75 mg PO HS 07/22/16 Atorvastatin Calcium [Lipitor 40 40 mg PO HS 07/22/16 mg (*)] EPINEPHrine [Epipen 0.3 MG] 0.3 mg IM ONCE PRN 07/22/16 Gabapentin [Neurontin 400 MG (*)] 400 mg PO TID 07/22/16 Herbals/Supplements -Info Only 1 ea PO DAILY 07/22/16 Isosorbide Dinitrate [Isosorbide 10 mg PO BID #10 tab 07/22/16 Dinitrate 10 mg (*)] Levothyroxine [Synthroid 137 mcg 137 mcg PO DAILY 07/22/16 (*)] Nitroglycerin [Nitrostat 0.4 mg 0.4 mg SL AD PRN 07/22/16 (*)] Pantoprazole Sodium [Protonix 40mg 40 mg PO HS 07/22/16 (*)] Ranitidine HCl [Zantac] 300 mg PO HS 07/22/16 Topiramate [Topamax 25MG (*)] 25 mg PO HS 07/22/16 amLODIPine BESYLATE [Norvasc 2.5 2.5 mg PO HS 07/22/16 mg (*)] Farxida 10/06/16 Dicyclomine [Bentyl 20 MG (*)] 20 mg PO QID #10 tab 12/03/16 Albuterol [Proventil Neb] 2.5 mg IH Q4-6PRN PRN #10 deyvial 02/02/18 predniSONE [Prednisone] 40 mg PO DAILY #20 tablet 02/02/18 MDM/Departure - MDM Medications Given: Discontinued Medications Albuterol (Proventil Neb) 3 ml IH EDNOW ONE Stop: 02/02/18 09:56 Last Admin: 02/02/18 10:09 Dose: 3 ml Prednisone (Prednisone) 40 mg PO EDNOW ONE Stop: 02/02/18 11:00 Last Admin: 02/02/18 11:09 Dose: 40 mg ED Course/Re-evaluation: The patient was evaluated and managed by the Physician Local Area Network Administrator. My co- signature indicates that I have reviewed this chart and I agree with the findings and plan of care as documented. I am the secondary supervising physician. (Sarahi Hassan) - Depart Disposition: Home, Routine, Self-Care Clinical Impression: Laryngitis, Viral URI with cough Condition: Good Instructions: Laryngitis (ED), Acute Bronchitis (ED), How to Use a Nebulizer ( ED) Additional Instructions: DISCHARGE INSTRUCTIONS FROM YOUR DOCTOR Thank you for visiting our emergency department today. Please keep in mind that discharge from the emergency department does not mean that there is nothing wrong - it simply means that we have not identified an emergency condition that requires further evaluation or treatment in the hospital. You should always plan to follow up with primary care for re-evaluation of your condition in the next 2-3 days. If you have been referred to a specialist, please call as soon as possible (today or tomorrow) to schedule your follow up appointment at the appropriate time. You likely are suffering from viral laryngitis and bronchitis. Vitals are stable, no hypoxia and no clinical findings to suggest pneumonia. We have given you a prescription for an albuterol inhaler to use with spacer every 4 hr as well as a short prednisone burst. Please stay home from work today as suggested by her employer. Drink plenty of fluids. Warm fluids with honey will help laryngitis. Voice rest as much as possible. Follow up with primary care in the next 2 days to recheck. Return to the emergency department for worsening cough, shortness of breath, chest pain, inability to swallow secretions, high fevers or any other concerns. People present with illnesses and injuries in different ways, and it is always possible that we have missed something. You may always return for re-evaluation if symptoms worsen or if they are not improving or if you develop new/different symptoms. Again, thank you for choosing our emergency department. We hope that you feel better. Prescriptions: Albuterol [Proventil Neb] 2.5 mg IH Q4-6PRN PRN #10 deyvial PRN Reason: Cough predniSONE [Prednisone] 40 mg PO DAILY #20 tablet Referrals: NONE *PRIMARY CARE P,. [Primary Care Provider] - As per Instructions
[2018-02-02] MEDS ORDERED: predniSONE 20 MG TAB PO ONE (10:59)
[2018-02-02 11:15] VITALS: BP 144/83
== END 2018-02-02 11:14 | disposition home or self-care (01) ==
DX: J04.0 Acute laryngitis (principal); J45.901 Unspecified asthma with (acute) exacerbation; E11.9 Type 2 diabetes mellitus without complications; Z79.4 Long term (current) use of insulin
CPT/HCPCS: J7512; J7613

== ENCOUNTER → 2018-02-17 | Outpatient (CLI) | payer OTHER | LOC: FIMAGING 09:20 | PROVIDERS: ATTEND Physician Assistant | DX: R22.2 Localized swelling, mass and lump, trunk (principal) ==

== ENCOUNTER 2018-03-26 12:39 | Day surgery (SDC) | payer OTHER ==
[2018-03-26] MEDS ORDERED: ceFAZolin 2 GM/DEXTROSE 100 ML IV ONE (13:16)
[2018-03-26] MEDS ORDERED: LIDOCAINE 1% 2 ML INJ ID PRN (13:21)
[2018-03-26] MEDS ORDERED: LR 1,000 ML IV ONE (13:21)
--- NOTE | 2018-03-26 14:27 | POSTANESTH ---
Post Anesthetic Evaluation Cardiovascular Status: Normal, Stable Respiratory Status: Normal, Stable Level of Consciousness/Mental Status: Can Participate in Eval, Mildly Sleepy, Arousable Nausea/Vomiting Control: Adequate, Prn Tx Ordered Complications Possibly Related to Anesthesia: None Noted Notes: Pt reports back pain. She had pre-surgical pain as well. She is not sure, at this time, if the pain is the same intensity or character as her pre-operative pain. Repositioning onto L side ameliorates the pain.
--- NOTE | 2018-03-26 14:30 | PDANEPAE ---
ANE History of Present Illness 47 yo female with painful back mass for excision. ANE Past Medical History - Cardiovascular History Hx Hypertension: No Hx Arrhythmias: No Hx Chest Pain: Yes Hx Coronary Artery / Peripheral Vascular Disease: No Hx CHF / Valvular Disease: No Hx Palpitations: No Cardiovascular History Comment: hx of angina - none recent, on Rx for lipids - Pulmonary History Hx COPD: No Hx Asthma/Reactive Airway Disease: No Hx Recent Upper Respiratory Infection: No Hx Oxygen in Use at Home: No Hx Sleep Apnea: No Sleep Apnea Screening Result - Last Documented: Negative Pulmonary History Comment: BRONCHITIS 01/2018 - Neurologic History Hx Cerebrovascular Accident: No Hx Seizures: No Hx Dementia: No Neurologic History Comment: migraines - Endocrine History Hx Diabetes: Yes Hypothyroid: Yes Hyperthyroid: No Obesity: no - Renal History Hx Renal Disorders: No - Liver History Hx Hepatic Disorders: No - Neurological & Psychiatric Hx Hx Neurological and Psychiatric Disorders: Yes Neurological / Psychiatric History Comment: insomnia, R side of face different ( sensation) due to migraines, anxiety - Cancer History Hx Cancer: No - Congenital Disorder History Hx Congenital Disorders: No - GI History GERD: moderate Hx Gastrointestinal Disorders: Yes - Other Health History Other Health History: R leg mass x2, Fibromyalgia - Chronic Pain History Chronic Pain: Yes (H/A, fibromyalgia) - Surgical History Prior Surgeries: laparoscopy Left oophorectomy 06-30, laparoscopy Right ooporectomy 12-30, laparoscopy 08-29,partial hysterectomy 06-22, C section . ANE Review of Systems Review of Systems: - Exercise capacity METS (RN): 4 METS - Systems Constitutional: Reports: no symptoms Cardiac: Reports: no symptoms Respiratory: Reports: no symptoms Muscolosketal: Reports: back pain ANE Patient History - Allergies Allergies/Adverse Reactions: capsaicin Allergy (Verified 03/19/18 11:02) Anaphylaxis ciprofloxacin [From Cipro] Allergy (Verified 03/19/18 11:02) Hives ciprofloxacin HCl [From Cipro] Allergy (Verified 03/19/18 11:02) Hives morphine Allergy (Verified 03/19/18 11:02) Hives Sulfa (Sulfonamide Antibiotics) Allergy (Verified 03/19/18 11:02) Hives tramadol Allergy (Verified 03/19/18 11:02) HEADACHES venom-wasp [Wasp Venom] Allergy (Verified 02/02/18 09:43) - Home Medications Home Medications: Amitriptyline HCl 75 mg PO HS 06/06/17 [Last Taken 03/25/18] Atorvastatin Calcium [Lipitor 40 mg (*)] 40 mg PO HS 07/22/16 [Last Taken ] EPINEPHrine [Epipen 0.3 MG] 0.3 mg IM ONCE PRN 07/22/16 [Last Taken Unknown] Gabapentin [Neurontin 400 MG (*)] 400 mg PO BID 07/22/16 [Last Taken 03/26/18] Herbals/Supplements -Info Only 1 ea PO DAILY 07/22/16 [Last Taken Unknown] Levothyroxine [Synthroid 137 mcg (*)] 137 mcg PO DAILY 07/22/16 [Last Taken 10/04] Nitroglycerin [Nitrostat 0.4 mg (*)] 0.4 mg SL AD PRN 07/22/16 [Last Taken Unknown] Pantoprazole Sodium [Protonix 40mg (*)] 40 mg PO HS 07/22/16 [Last Taken ] Ranitidine HCl [Zantac] 300 mg PO HS 07/22/16 [Last Taken 03/25/18] Topiramate [Topamax 25MG (*)] 25 mg PO HS 07/22/16 [Last Taken 03/25/18] Farxiga DAILY 03/19/18 [Last Taken 03/25/18] LORAZEPAM PRN 03/19/18 [Last Taken 02/24/18] ZOLPIDEM TARTRATE HS 03/19/18 [Last Taken 03/23/18] Verapamil 03/26/18 [Last Taken 03/25/18] - NPO status NPO Since - Liquids (Date): 03/26/18 NPO Since - Liquids (Time): 12:00 NPO Since - Solids (Date): 03/25/18 NPO Since - Solids (Time): 23:59 - Anes Hx Anes Hx: post operative nausea - Smoking Hx Smoking Status: Former smoker - Alcohol Use Alcohol Use: Occasionally - Family Anes Hx Family Anes Hx: neg - N/A ANE Labs/Vital Signs - Vital Signs Blood Pressure: 146/88 Heart Rate: 76 Respiratory Rate: 18 O2 Sat (%): 96 Height: 163.83 cm Weight: 74.843 kg ANE Physical Exam - Airway Neck exam: FROM (short TMD) Mallampati Score: Class 2 Mouth exam: normal dental/mouth exam (braces) - Pulmonary Pulmonary: clear to auscultation - Cardiovascular Cardiovascular: regular rate and rhythym - ASA Status ASA Status: III ANE Anesthesia Plan Anesthesia Plan: GA w LMA
[2018-03-26] MEDS ORDERED: BUPIVACAINE 0.25% 30 ML SDV ONE (15:05)
[2018-03-26] MEDS ORDERED: fentaNYL 100 MCG/2 ML INJ ONE ×2 (15:17→16:28)
[2018-03-26] MEDS ORDERED: DEXAMETHASONE 4 MG/ML VIAL ONE (15:17)
[2018-03-26] MEDS ORDERED: LIDOCAINE 2% 5 ML SDV ONE (15:17)
[2018-03-26] MEDS ORDERED: PROPOFOL 200 MG/20 ML VIAL ONE (15:17)
[2018-03-26] MEDS ORDERED: ONDANSETRON 4 MG/2 ML VIAL ONE (15:24)
[2018-03-26] MEDS ORDERED: LR 500 ML IV PRN (15:47)
[2018-03-26] MEDS ORDERED: ALBUTEROL 3 ML DEYVIAL IH PRN (15:47)
[2018-03-26] MEDS ORDERED: PROMETHAZINE HCL 25 MG/ML INJ IVP PRN (15:47)
[2018-03-26] MEDS ORDERED: NALOXONE HCL 0.4 MG/ML INJ IVP PRN (15:47)
[2018-03-26] MEDS ORDERED: HYDROCODONE/APAP 5/325 TAB PO PRN (15:47)
--- NOTE | 2018-03-26 16:11 | POSTOPPROG ---
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
[2018-03-26] MEDS ORDERED: NON-FORMULARY NEW DRUG (Epinephrine [Epipen 0.3 Mg] 0.3 MG) IM PRN (16:13)
[2018-03-26] MEDS ORDERED: HYDROCODONE/APAP 5/325 TAB ONE (16:29)
[2018-03-26] MEDS: fentaNYL 100 MCG/2 ML INJ IVP PRN ×3 (16:30→16:56)
[2018-03-26 17:22] VITALS: BP 120/73
--- NOTE | 2018-03-26 20:24 | GOP ---
[f rep st] OPERATIVE REPORT DATE OF OPERATION: 03/26/2018 SURGEON: Alber Jesus MD, FACS BOAT FUELER: ELIA Brand3. ANESTHESIA: General by laryngeal mask. ANESTHESIOLOGIST: Rafaela Leon D.O. PREOPERATIVE DIAGNOSIS: Right lower lumbar soft tissue tumor. POSTOPERATIVE DIAGNOSIS: Right lower lumbar soft tissue tumor. PROCEDURE PERFORMED: Excision of right lower lumbar soft tissue tumor, less than 3 cm, subcutaneous. FINDINGS: Benign-appearing soft tissue tumor in the superficial subcutaneous tissues of the right lower lumbar spine, excised and submitted for permanent section, clinically consistent with lipoma. ESTIMATED BLOOD LOSS: 10 cc. INDICATIONS: Patient is a 47-year-old female with an enlarging nodule in her right lower lumbar region that is now causing pain. DESCRIPTION OF PROCEDURE: After informed consent was obtained, the patient was brought to the operating room and placed under general anesthesia. She was positioned in the left lateral decubitus position. The right lower lumbar region was prepped and draped in usual fashion. Before proceeding, a time-out identification of the patient was performed. The palpable nodule was marked on skin with a marking pen preoperatively. The skin was infiltrated with 0.25% Marcaine, incised transversely, and dissection carried out through skin and subcutaneous tissues. The nodule was located visually by palpation, noted to be an encapsulated fatty tumor consistent with a lipoma. This was dissected from the surrounding subcutaneous fatty tissue and was submitted for permanent section. Hemostasis was secured with cautery. Subcutaneous tissues were approximated with 3-0 Monocryl suture. Skin was closed with 4-0 Monocryl suture in a subcuticular fashion. Topical Dermabond was applied. The patient was returned to the recovery room in satisfactory condition. Needle, sponge, and instrument count correct. COMPLICATIONS: None. /[id number]/MODL MTDD
== END 2018-03-26 18:00 | disposition home or self-care (01) ==
LOC: FSGY 12:39 → EEVIPCON 14:30 → FSGY 18:00
PROVIDERS: ATTEND Surgery
PROC: 0JB70ZZ Excision of Back Subcutaneous Tissue and Fascia, Open Approach (ICD-10-PCS; principal; 2018-03-26 14:30)
DX: D17.1 Benign lipomatous neoplasm of skin and subcutaneous tissue of trunk (principal); G43.909 Migraine, unspecified, not intractable, without status migrainosus; J45.909 Unspecified asthma, uncomplicated; E11.9 Type 2 diabetes mellitus without complications; M79.7 Fibromyalgia; E78.5 Hyperlipidemia, unspecified; E03.9 Hypothyroidism, unspecified; Z87.891 Personal history of nicotine dependence; Z88.2 Allergy status to sulfonamides; Z90.722 Acquired absence of ovaries, bilateral; Z90.710 Acquired absence of both cervix and uterus
CPT/HCPCS: J0690; J1100; J2405; J2704; J3010

== ENCOUNTER → 2018-04-07 | Outpatient (CLI) | payer OTHER | LOC: FIMAGING 09:37 | PROVIDERS: ATTEND Family Medicine | DX: R10.11 Right upper quadrant pain (principal); K76.0 Fatty (change of) liver, not elsewhere classified ==

== ENCOUNTER → 2018-04-13 | Outpatient (CLI) | payer OTHER | LOC: FIMAGING 12:44 | PROVIDERS: ATTEND Physical Medicine & Rehabilitation | DX: M47.895 Other spondylosis, thoracolumbar region (principal) ==

== ENCOUNTER → 2018-05-05 | Outpatient (CLI) | payer OTHER | LOC: FIMAGING 09:51 | PROVIDERS: ATTEND Midwife | DX: R10.2 Pelvic and perineal pain (principal); Z90.710 Acquired absence of both cervix and uterus; Z90.721 Acquired absence of ovaries, unilateral ==

== ENCOUNTER 2018-06-29 09:42 | Emergency (ER) | payer OTHER ==
[2018-06-29] MEDS ORDERED: NS 1,000 ML IV ONE (10:04)
--- NOTE | 2018-06-29 10:05 | EDPHY ---
H & P Stated Complaint: R flank pain Time Seen by Provider: 06/29/18 09:55 HPI/ROS: CHIEF COMPLAINT: Back pain, right upper quadrant pain, nausea HISTORY OF PRESENT ILLNESS: The patient presents the ED with several days of increasing back pain, right upper quadrant pain and nausea. The patient reports her symptoms began on Thursday and have steadily been increasing. They seem to be worsened with eating. The patient denies any melena or hematemesis. The patient denies prior history of cholecystectomy. The patient reports that her pain is moderate in nature. The pain and back is also reproduced with palpation. REVIEW OF SYSTEMS: A comprehensive 10 point review of systems is otherwise negative aside from elements mentioned in the history of present illness. Source: Patient Exam Limitations: No limitations - Personal History Current Tetanus/Diphtheria Vaccine: Yes Current Tetanus Diphtheria and Acellular Pertussis (TDAP): Yes Tetanus Vaccine Date: < 10 years - Medical/Surgical History Hx Asthma: Yes Hx Chronic Respiratory Disease: No Hx Diabetes: Yes Hx Cardiac Disease: Yes Hx Renal Disease: No Hx Cirrhosis: No Hx Alcoholism: No Hx HIV/AIDS: No Hx Splenectomy or Spleen Trauma: No Other PMH: hysterectomy,C- section, laproscopy for ovarian cysts and adhesions; hypothyroid, fibromyalgia, diabetes, asthma, IBS, adhesions, ANGINA, high cholesterol, chron. migranes, ovarien removal, GERD - Social History Smoking Status: Former smoker - Physical Exam Exam: General Appearance: Alert, no distress Eyes: Pupils equal and round no pallor or injection ENT, Mouth: Mucous membranes moist Respiratory: There are no retractions, lungs are clear to auscultation Cardiovascular: Regular rate and rhythm Gastrointestinal: Tenderness to palpation right upper quadrant Neurological: A&O, normal motor function, normal sensory exam, normal cranial nerves Skin: Warm and dry, no rashes Musculoskeletal: Tenderness to palpation in the right thoracic musculature Extremities: symmetrical, full range of motion Psychiatric: Patient is oriented X 3, there is no agitation Constitutional: Initial Vital Signs Temperature (C) 36.9 C 06/29/18 09:48 Heart Rate 77 06/29/18 09:48 Respiratory Rate 16 06/29/18 09:48 Blood Pressure 132/97 H 06/29/18 09:48 O2 Sat (%) 95 06/29/18 09:48 O2 Delivery Mode Room Air Allergies/Adverse Reactions: capsaicin Allergy (Verified 06/29/18 09:46) Anaphylaxis ciprofloxacin [From Cipro] Allergy (Verified 06/29/18 09:46) Hives ciprofloxacin HCl [From Cipro] Allergy (Verified 06/29/18 09:46) Hives morphine Allergy (Verified 06/29/18 09:46) Hives Sulfa (Sulfonamide Antibiotics) Allergy (Verified 06/29/18 09:46) Hives tramadol Allergy (Verified 06/29/18 09:46) HEADACHES venom-wasp [Wasp Venom] Allergy (Verified 06/29/18 09:46) Home Medications: Medication Instructions Recorded Amitriptyline HCl 75 mg PO HS 07/22/16 Atorvastatin Calcium [Lipitor 40 40 mg PO HS 07/22/16 mg (*)] EPINEPHrine [Epipen 0.3 MG] 0.3 mg IM ONCE PRN 07/22/16 Gabapentin [Neurontin 400 MG (*)] 400 mg PO BID 07/22/16 Herbals/Supplements -Info Only 1 ea PO DAILY 07/22/16 Nitroglycerin [Nitrostat 0.4 mg 0.4 mg SL AD PRN 07/22/16 (*)] Pantoprazole Sodium [Protonix 40mg 40 mg PO HS 07/22/16 (*)] Ranitidine HCl [Zantac] 300 mg PO HS 07/22/16 Topiramate [Topamax 25MG (*)] 25 mg PO HS 07/22/16 Albuterol [Proventil Neb] 2.5 mg IH Q4-6PRN PRN #10 deyvial 02/02/18 Farxiga DAILY 03/19/18 LORAZEPAM PRN 03/19/18 ZOLPIDEM TARTRATE HS 03/19/18 Verapamil 03/26/18 Unithroid 06/29/18 Medical Decision Making - Diagnostics Imaging Results: Imaging Impressions Abdomen Ultrasound 06/29/18 10:04 Impression: 1. No acute findings. 2. Hepatic steatosis. Findings discussed with Ronak Herzog 06/29/2018 at 10:51. ED Course/Re-evaluation: Patient presents to the ED with abdominal pain, back pain and vomiting. The patient was noted to be tender her right upper quadrant. She also had reproducible tenderness in her musculoskeletal region in the back. Patient's laboratory testing including CBC, serum chemistries, liver function test and lipase are normal. The patient did undergo a right upper quadrant ultrasound which demonstrates no evidence of acute disease. The patient's urinalysis demonstrates no evidence of hematuria or stigmata of infection. The patient was treated with Toradol Zofran and fluids in the emergency department. I re-evaluated the patient at 12:30 p.m.. I find her examination to be reassuring. I do not feel that further workup is indicated at this point time. The patient will be given a prescription for Zofran as I believe she is likely having an infectious enteritis. The patient is also advised to use some Tylenol as needed for management of her back pain. She is discharged home with customary aftercare instructions and return precautions. Differential Diagnosis: Differential diagnosis considered includes peptic ulcer disease, cholecystitis, urinary tract infection, nephrolithiasis, myofascial strain - Data Points Laboratory Results: Laboratory Results 06/29/18 10:10 06/29/18 10:10 06/29/18 06/29/18 06/29/18 11:30 10:10 10:10 WBC RBC Hgb Hct MCV MCH MCHC RDW Plt Count MPV Neut % (Auto) Lymph % (Auto) [place] % (Auto) Eos % (Auto) Baso % (Auto) Nucleat RBC Rel Count Absolute Neuts (auto) Absolute Lymphs (auto) Absolute Monos (auto) Absolute Eos (auto) Absolute Basos (auto) Absolute Nucleated RBC Immature Gran % Immature Gran # Sodium 138 mEq/L mEq/L (135-145) Potassium 4.1 mEq/L mEq/L (3.5-5.2) Chloride 106 mEq/L mEq/L (97-110) Carbon Dioxide 24 mEq/l mEq/l (22-31) Anion Gap 8 mEq/L mEq/L (6-14) BUN 16 mg/dL mg/dL (7-23) Creatinine 0.8 mg/dL mg/dL (0.6-1.0) Estimated GFR > 60 Glucose 97 mg/dL mg/dL (70-100) Calcium 9.0 mg/dL mg/dL (8.5-10.4) Total Bilirubin 0.2 mg/dL mg/dL (0.1-1.4) Conjugated Bilirubin 0.1 mg/dL mg/dL (0.0-0.5) Unconjugated Bilirubin 0.1 mg/dL mg/dL (0.0-1.1) AST 21 IU/L IU/L (14-46) ALT 29 IU/L IU/L (9-52) Alkaline Phosphatase 75 IU/L IU/L (38-126) Total Protein 6.1 g/dL L g/dL (6.3-8.2) Albumin 3.6 g/dL g/dL (3.5-5.0) Lipase 65 IU/L IU/L (23-300) Beta HCG, Qual NEGATIVE Urine Color PALE YELLOW Urine Appearance CLEAR Urine pH 7.0 (5.0-7.5) Ur Specific [place] 1.008 (1.002-1.030) Urine Protein NEGATIVE (NEGATIVE) Urine Ketones NEGATIVE (NEGATIVE) Urine Blood NEGATIVE (NEGATIVE) Urine Nitrate NEGATIVE (NEGATIVE) Urine Bilirubin NEGATIVE (NEGATIVE) Urine Urobilinogen NEGATIVE EU EU (0.2-1.0) Ur Leukocyte Esterase NEGATIVE (NEGATIVE) Urine Glucose NEGATIVE (NEGATIVE) 06/29/18 10:10 WBC 4.52 10^3/uL 10^3/uL (3.80-9.50) RBC 4.38 10^6/uL 10^6/uL (4.18-5.33) Hgb 13.9 g/dL g/dL (12.6-16.3) Hct 41.4 % % (38.0-47.0) MCV 94.5 fL fL (81.5-99.8) MCH 31.7 pg pg (27.9-34.1) MCHC 33.6 g/dL g/dL (32.4-36.7) RDW 12.1 % % (11.5-15.2) Plt Count 225 10^3/uL 10^3/uL (150-400) MPV 9.6 fL fL (8.7-11.7) Neut % (Auto) 48.9 % % (39.3-74.2) Lymph % (Auto) 39.6 % % (15.0-45.0) [place] % (Auto) 8.2 % % (4.5-13.0) Eos % (Auto) 2.7 % % (0.6-7.6) Baso % (Auto) 0.4 % % (0.3-1.7) Nucleat RBC Rel Count 0.0 % % (0.0-0.2) Absolute Neuts (auto) 2.21 10^3/uL 10^3/uL (1.70-6.50) Absolute Lymphs (auto) 1.79 10^3/uL 10^3/uL (1.00-3.00) Absolute Monos (auto) 0.37 10^3/uL 10^3/uL (0.30-0.80) Absolute Eos (auto) 0.12 10^3/uL 10^3/uL (0.03-0.40) Absolute Basos (auto) 0.02 10^3/uL 10^3/uL (0.02-0.10) Absolute Nucleated RBC 0.00 10^3/uL 10^3/uL (0-0.01) Immature Gran % 0.2 % % (0.0-1.1) Immature Gran # 0.01 10^3/uL 10^3/uL (0.00-0.10) Sodium Potassium Chloride Carbon Dioxide Anion Gap BUN Creatinine Estimated GFR Glucose Calcium Total Bilirubin Conjugated Bilirubin Unconjugated Bilirubin AST ALT Alkaline Phosphatase Total Protein Albumin Lipase Beta HCG, Qual Urine Color Urine Appearance Urine pH Ur Specific [place] Urine Protein Urine Ketones Urine Blood Urine Nitrate Urine Bilirubin Urine Urobilinogen Ur Leukocyte Esterase Urine Glucose Medications Given: Discontinued Medications Sodium Chloride (Ns) 1,000 mls @ 0 mls/hr IV EDNOW ONE; Wide Open PRN Reason: Protocol Stop: 06/29/18 10:05 Last Admin: 06/29/18 10:44 Dose: 1,000 mls Ketorolac Tromethamine (Toradol) 15 mg IVP ONCE ONE Stop: 06/29/18 10:55 Last Admin: 06/29/18 11:01 Dose: 15 mg Ondansetron HCl (Zofran) 4 mg IVP EDNOW ONE Stop: 06/29/18 10:55 Last Admin: 06/29/18 11:01 Dose: 4 mg Departure - Departure Disposition: Home, Routine, Self-Care Clinical Impression: Thoracic myofascial strain Abdominal pain Qualifiers: Abdominal location: right lower quadrant Qualified Code(s): R10.31 - Right lower quadrant pain Condition: Good Instructions: Gastroenteritis (ED), Musculoskeletal Pain (ED) Additional Instructions: 1. The testing performed in the emergency department today demonstrates no evidence of a surgical abdominal condition. 2. I do believe your vomiting abdominal pain is secondary to a viral syndrome. I do recommend Zofran today for management of your symptoms. 3, Sometimes we are unable to diagnose an obvious cause of abdominal pain in the Emergency Department. Based upon our evaluation today, I believe your your symptoms are secondary to a viral infection.. Because more serious conditions can be difficult to diagnose early in the course of their presentation, we ask that you return to the Emergency Department in 8-12 hours for a recheck if you are still having pain. This is necessary to exclude the development of a more serious condition such as appendicitis or other intra-abdominal emergency. In the event your pain markedly increases before that time or you develop intractable vomiting or fever return to the Emergency Department immediately. 4. I do recommend taking Tylenol 650 mg every 6 hr as needed for your back pain. Referrals: Price Garber MD [Primary Care Provider] - As per Instructions
[2018-06-29 10:23] LABS: PLATELET COUNT 225 10^3/uL (150-400)
[2018-06-29] MEDS ORDERED: KETOROLAC 15 MG/1 ML SDV IVP ONE (10:54)
[2018-06-29] MEDS ORDERED: ONDANSETRON 4 MG/2 ML VIAL IVP ONE (10:54)
[2018-06-29 13:14] VITALS: BP 106/69
== END 2018-06-29 13:13 | disposition home or self-care (01) ==
DX: S23.3XXA Sprain of ligaments of thoracic spine, initial encounter (principal); R10.31 Right lower quadrant pain; K76.0 Fatty (change of) liver, not elsewhere classified; X58.XXXA Exposure to other specified factors, initial encounter; Z87.891 Personal history of nicotine dependence
CPT/HCPCS: 96374; J1885; J2405

== ENCOUNTER → 2018-07-08 | Outpatient (CLI) | payer OTHER | LOC: FIMAGING 06:50 | PROVIDERS: ATTEND Physician Assistant Medical | DX: G43.719 Chronic migraine without aura, intractable, without status migrainosus (principal); H91.90 Unspecified hearing loss, unspecified ear; R20.2 Paresthesia of skin; R42 Dizziness and giddiness | CPT/HCPCS: A9585 ==